=== PATIENT | female | born 1945 | race Caucasian/White ===

== ENCOUNTER → 2017-01-03 | Outpatient (CLI) | payer OTHER ==
[2017-01-03 12:45] LABS: ESTIMATED AVERAGE GLUCOSE 192 mg/dl; HA1C FLAG Normal (Normal)
[2017-01-03 13:57] LABS: ALT/SGPT 25 U/L (12-78); AST/SGOT 14 U/L (15-37); BLOOD UREA NITROGEN 18 mg/dl (7-18); BUN/CREATININE RATIO 14.6 (10-20); CALCIUM 9.8 mg/dl (8.5-10.1); CARBON DIOXIDE 25 mmol/L (21-32); CHLORIDE 100 mmol/L (98-107); GLUCOSE 128 mg/dl (70-99); POTASSIUM 4.6 mmol/L (3.5-5.1); SODIUM 135 mmol/L (136-145)
[2017-01-03 13:59] LABS: ALB/GLOB RATIO 1.1 (0.9-2); ALKALINE PHOSPHATASE 88 U/L (45-117)
[2017-01-03 18:05] LABS: URINE APPEARANCE CLEAR (CLEAR); URINE BILIRUBIN NEG (NEG); URINE COLOR YELLOW; URINE EPITHELIAL CELL AUTO >30 /lpf (0-5); URINE NITRITE NEG (NEG); UROBILINOGEN NEG (NEG); ZZUR CULT IF INDIC CLEAN CATCH YES
[2017-01-03 18:12] LABS: MANUAL MICROSCOPIC REQUIRED? NO; REVIEW REQ? NO
== END | disposition home or self-care (01) ==
LOC: C.LABBFT 08:31
PROVIDERS: ATTEND Internal Medicine
DX: E11.22 Type 2 diabetes mellitus with diabetic chronic kidney disease (principal); N18.3 Chronic kidney disease, stage 3 (moderate); E55.9 Vitamin D deficiency, unspecified

== ENCOUNTER → 2017-01-23 | Outpatient (CLI) | payer OTHER | END | disposition home or self-care (01) | LOC: C.PAPS 16:25 | PROVIDERS: ATTEND Obstetrics & Gynecology | DX: Z12.4 Encounter for screening for malignant neoplasm of cervix (principal); N81.10 Cystocele, unspecified; N81.6 Rectocele ==

== ENCOUNTER → 2017-05-05 | Outpatient (CLI) | payer OTHER ==
[2017-05-05 12:55] LABS: ESTIMATED AVERAGE GLUCOSE 194 mg/dl; HA1C FLAG Normal (Normal)
[2017-05-05 13:06] LABS: ALB/GLOB RATIO 1.1 (0.9-2); ALKALINE PHOSPHATASE 92 U/L (45-117); ALT/SGPT 27 U/L (12-78); AST/SGOT 17 U/L (15-37); BLOOD UREA NITROGEN 13 mg/dl (7-18); BUN/CREATININE RATIO 12.6 (10-20); CARBON DIOXIDE 25 mmol/L (21-32); CHLORIDE 104 mmol/L (98-107); CHOLESTEROL 149 mg/dl (0-200); CHOLESTEROL/HDL RATIO 2.9; GLUCOSE 134 mg/dl (70-99); HDL CHOLESTEROL 52 mg/dl; LDL CHOLESTEROL CALCULATED 73 mg/dl; POTASSIUM 4.6 mmol/L (3.5-5.1); SODIUM 135 mmol/L (136-145); TRIGLYCERIDES 118 mg/dl (0-150); VERY LOW DENSITY LIPOPROT CALC 24 mg/dl
== END | disposition home or self-care (01) ==
LOC: C.LABBFT 09:01
PROVIDERS: ATTEND Internal Medicine
DX: E11.65 Type 2 diabetes mellitus with hyperglycemia (principal); E78.5 Hyperlipidemia, unspecified; N18.3 Chronic kidney disease, stage 3 (moderate)

== ENCOUNTER → 2017-09-25 | Outpatient (CLI) | payer OTHER ==
[2017-09-25 12:16] LABS: BASO % 0.7 %; BASO ABS # 0.07 K/uL (0-0.2); COMPLETE YES; EOS % 1.7 %; HEMATOCRIT 37.8 % (37-47); IG% 0.3 %; LYMPH % 22.6 %; LYMPH ABS # 2.12 K/uL (1.2-3.4); MEAN CELL VOLUME 87.9 fL (80-100); MEAN CORPUSCULAR HEMOGLOBIN 28.6 pg (25-34); MEAN CORPUSCULAR HGB CONC 32.5 g/dl (32-36); MEAN PLATELET VOLUME 9.1 fL (7.4-10.4); MONO % 5.9 %; NEUT % 68.8 %; PLATELET COUNT 533 K/uL (130-400); WHITE BLOOD COUNT 9.38 K/uL (4.8-10.8)
[2017-09-25 12:39] LABS: ESTIMATED AVERAGE GLUCOSE 186 mg/dl; HA1C FLAG Normal (Normal)
[2017-09-25 13:13] LABS: BLOOD UREA NITROGEN 17 mg/dl (7-18); BUN/CREATININE RATIO 15.8 (10-20); CALCIUM 9.8 mg/dl (8.5-10.1); CARBON DIOXIDE 23 mmol/L (21-32); CHLORIDE 103 mmol/L (98-107); CREATININE 1.06 mg/dl (0.60-1.20); GLUCOSE 133 mg/dl (70-99); POTASSIUM 3.9 mmol/L (3.5-5.1); SODIUM 134 mmol/L (136-145)
== END | disposition home or self-care (01) ==
LOC: C.LABBFT 09:10
PROVIDERS: ATTEND Internal Medicine
DX: E11.65 Type 2 diabetes mellitus with hyperglycemia (principal); E55.9 Vitamin D deficiency, unspecified; N18.3 Chronic kidney disease, stage 3 (moderate); E11.22 Type 2 diabetes mellitus with diabetic chronic kidney disease

== ENCOUNTER → 2017-11-10 | Outpatient (CLI) | payer OTHER | END | disposition home or self-care (01) | LOC: C.PAPS 15:04 | PROVIDERS: ATTEND Obstetrics & Gynecology | DX: N81.3 Complete uterovaginal prolapse (principal); Z78.0 Asymptomatic menopausal state ==

== ENCOUNTER → 2018-01-29 | Outpatient (CLI) | payer OTHER ==
[2018-01-29 12:51] LABS: BLOOD UREA NITROGEN 17 mg/dl (7-18); CALCIUM 9.9 mg/dl (8.5-10.1); CARBON DIOXIDE 25 mmol/L (21-32); CREATININE 1.15 mg/dl (0.60-1.20); GLUCOSE 165 mg/dl (70-99); PHOSPHORUS 3.7 mg/dl (2.5-4.9); POTASSIUM 4.9 mmol/L (3.5-5.1); SODIUM 133 mmol/L (136-145)
[2018-01-29 13:01] LABS: HEMOGLOBIN A1C 8.4 % (4.5-5.6)
[2018-01-29 17:44] LABS: CREATININE RANDOM URINE 79.3 mg/dl
== END | disposition home or self-care (01) ==
LOC: C.LABBFT 09:00
PROVIDERS: ATTEND Internal Medicine
DX: E11.65 Type 2 diabetes mellitus with hyperglycemia (principal); N18.3 Chronic kidney disease, stage 3 (moderate)

== ENCOUNTER 2021-07-04 09:40 | Inpatient (IN) ==
[2021-07-04] MEDS ORDERED: dexAMETHasone 6 MG in SYRINGE 0 ML IV ONE (09:55)
[2021-07-04] MEDS ORDERED: OPTIRAY 320 125ml IV ONE (09:59)
[2021-07-04] MEDS ORDERED: DEXAMETHASONE SOD INJ 4 MG/ML VIAL ONE (10:05)
--- NOTE | 2021-07-04 10:17 | XRay Report ---
XR chest 1V portable CLINICAL HISTORY: SEPSIS COMPARISON STUDY: No previous studies for comparison. FINDINGS: No pneumothorax. No pleural effusion. Patchy mixed reticular and airspace opacities are seen bilaterally. Lung volumes are decreased. Cardiomediastinal silhouette appear to be within normal limits however left cardiac border is obscure d by surrounding opacities. Aorta is tortuous and calcified. Pulmonary vasculature is indistinct.. Osseous structures: unremarkable IMPRESSION: 1. Bilateral mixed reticular and airspace opacities, could represent multifocal pneumonia. 2. Atherosclerosis. ACT 112: Negative or not required by law. The above report was generated using voice recognition software. It may contain grammatical, syntax o r spelling errors. Electronically signed by: Danielle Crowley DO 07/04/2021 10:15 AM
[2021-07-04 10:25] LABS: Hemoglobin 12.5 g/dL (12.0-16.0); Mean Corpuscular Hemoglobin 29.1 pg (25-34); Mean Corpuscular Hgb Conc 33.8 g/dL (32-36); Mean Corpuscular Volume 86.2 fL (80-100); Mean Platelet Volume 9.3 fL (7.4-10.4); Platelet Count 317 K/uL (130-400); RDW Coefficient of Variation 13.9 % (11.5-14.5); RDW Standard Deviation 43.6 fL (36.4-46.3); Red Blood Count 4.29 M/uL (4.2-5.4); White Blood Count 9.77 K/uL (4.8-10.8)
[2021-07-04 10:36] LABS: Partial Thromboplastin Ratio 1.1; Partial Thromboplastin Time 29.9 Seconds (21.0-31.0); Prothrombin Time 10.1 Seconds (9.0-12.0)
[2021-07-04 10:48] LABS: Alanine Aminotransferase 26 U/L (12-78); Albumin Globulin Ratio 0.6 (0.9-2); Albumin Level 2.9 gm/dl (3.4-5.0); Alkaline Phosphatase 82 U/L (45-117); BUN Creatinine Ratio 17.9 (10-20); Bilirubin,Total 0.6 mg/dl (0.2-1); Blood Urea Nitrogen 22 mg/dl (7-18); Calcium 8.7 mg/dl (8.5-10.1); Carbon Dioxide 22 mmol/L (21-32); Chloride 96 mmol/L (98-107); Creatinine Clr Calc Pharmacy 31.9 ml/min; Est GFR (African American) 47.7 ml/min; Est GFR (Non-African American) 41.2 ml/min; Globulin 4.5 gm/dl (2.5-4.0); Glucose 203 mg/dl (70-99); Sodium 128 mmol/L (136-145); Total Protein 7.4 gm/dl (6.4-8.2); Troponin I < 0.015 ng/ml (0-0.045)
[2021-07-04 10:51] LABS: Basophils # (auto) 0.02 K/uL (0-0.2); Basophils % (auto) 0.2 %; Immature Granulocytes # (auto) 0.04 K/uL (0.00-0.02); Immature Granulocytes % (auto) 0.4 %; Lymphocytes # (auto) 0.75 K/uL (1.2-3.4); Lymphocytes % (auto) 7.7 %; Monocytes # (auto) 0.44 K/uL (0.11-0.59); Monocytes % (auto) 4.5 %; Neutrophils # (auto) 8.52 K/uL (1.4-6.5); Neutrophils % (auto) 87.2 %
[2021-07-04 11:05] LABS: Base Excess VBG -3.3 mEq/L; HCO3 VBG 21 mmol/L; PCO2 VBG 37 mmHg (38-50); PO2 VBG 27 mmHg; pH VBG 7.38 (7.36-7.41)
[2021-07-04 11:08] LABS: Oxygen Saturation VBG < 60.0 %
[2021-07-04 11:49] LABS: Potassium 3.9 mmol/L (3.5-5.1)
--- NOTE | 2021-07-04 11:49 | CT Scan Report ---
CT ANGIOGRAM OF THE CHEST CLINICAL HISTORY: ro PE COMPARISON STUDY: No previous studies for comparison. TECHNIQUE: Following the IV administration of 112 mL of Optiray, CT angiogram of the thorax was perfo rmed from the thoracic inlet to the lung bases utilizing the pulmonary embolus protocol. Images are r eviewed in the axial, sagittal, and coronal planes. IV contrast was administered without complication . MIP imaging was performed. A dose lowering technique was utilized adhering to the principles of [place]. CT DOSE: 295.74 mGy.cm FINDINGS: There is adequate opacification within main pulmonary artery. No evidence of acute pulmonary embolus is seen within main and lobar branches of the pulmonary artery . Questionable linear area of decreased attenuation/filling defect is seen within right middle lobe b ranch of the pulmonary artery which could be artifactual due to motion artifact or represent nonocclu sive web (which could be sequela from prior PE () Main pulmonary artery is normal in caliber. There is no right heart strain seen. Heart is normal in size without pericardial effusion. Mild coronary calcifications are seen. Calcific ations of the mitral annulus are demonstrated. There is no axillary, supra clavicle or internal mammary lymphadenopathy seen. Multiple mediastinal l ymph nodes are prominent measuring up to 1.1 cm in short axis in the pretracheal region. Visualized portion of thyroid gland shows 1.7 cm hypoattenuating nodule within right thyroid lobe. Distal aspect of esophagus is patulous with questionable thickening of its wall. Mild hiatal hernia i s seen. There was no evidence of thoracic aortic dilatation. Tracheobronchial tree is patent. This study is acquired during partial expiratory phase. Patchy mixed groundglass and infiltrative opacities are seen bilaterally. No evidence of pleural effusion. Limited evaluation of upper abdominal viscera shows 2.9 cm hypoattenuating lesion within the right lo be of the liver parenchyma (01/14) Osseous structures: Degenerative changes of the spine. IMPRESSION: 1. No definite acute pulmonary embolus is seen. Questionable linear density within right middle lobe pulmonary artery which might be artifactual or represent a web (could be sequela from prior PE). No secondary signs of pulmonary embolus. 2. Patchy airspace opacities throughout bilateral lungs could represent multifocal pneumonia/Covid. Mild mediastinal lymphadenopathy. Short-term follow-up in 4-[address] of the chest is recommend ed to document resolution. 3. Questionable hypoattenuating lesion within the right lobe of the liver is incompletely evaluated on this nondedicated exam. Differential diagnosis include hemangioma, cyst or neoplastic process. Ple ase correlate above-mentioned findings with prior history of malignancy. 4. Right thyroid nodule. 5. Hiatal hernia. 6. The rest of findings as above. ACT 112: Negative or not required by law. The above report was generated using voice recognition software. It may contain grammatical, syntax o r spelling errors. Electronically signed by: Danielle Crowley DO 07/04/2021 11:48 AM
--- NOTE | 2021-07-04 12:20 | History & Physical Report ---
Date of Service July 04, 2021 Assessment & Plan (1) Pneumonia due to COVID-19 virus: Plan: Unvaccinated Dexamethasone total 10mg now then 6mg IV daily for total of 9 days of until discharge. Reassess with CRP in 48 hours Defer tocilizumab due to low O2 requirement at the current time Above discussed with pulmonology, Dr Cheo Taylorivir deferred due to low eGFR and at day 10 of illness Cover for atypical pneumonia given elevated neutrophil count with azithromycin Procalcitonin negative therefore will hold of typical coverage unless procalcitonin increases or patient deteriorates. (2) Acute respiratory failure with hypoxia: Plan: Secondary to COVID-19 pneumonia as above Questionable pulmonary emboli and possible bacterial secondary infection much less likely contributing. Aim O2 sats >= 94% (3) Pulmonary emboli: Plan: Questionable diagnosis. Consider treatment for 3 months however with d-dimer 1870. Start Lovenox 1mg/kg Q12H during inpatient stay (4) Hyponatremia: Plan: Acute on chronic, clinically dry, sodium correction for hyperglycemia = 130 ?nutritional Serum osm, urine osm/Na pending to further investigate Will defer IV fluids to avoid worsening respiratory status and monitor sodium as glucose improves (5) Hypertension: Plan: Antihypertensives not taken by patient for last two days and blood pressure stable Continue to hold lisinopril in setting of worsening renal function Switch diltiazem ER to IR 60mg TID with hold parameters to allow better control (6) Diabetes mellitus type 2, uncontrolled: Plan: HbA1C 10 in April. Repeat with AM labs. Hold home meds of glimepiride and metformin Consult pharmacy for glycemic control with basal bolus insulin in setting of steroid use. (7) Liver lesion: Plan: Incidental finding. AFP with AM labs. Follow up for dedicated imaging as outpatient. (8) Right thyroid nodule: Plan: Incidental finding. Follow up US thyroid, TSH as outpatient. (9) Chronic kidney disease, stage 3: Plan: Close to baseline. No IV fluids at current time as reportedly drinking well and need to avoid worsening respiratory status. Monitor BMP daily. Plan: VTE Prophylaxis - Lovenox treatment dose as above Diet - T2DM Disposition - admit to med/tele Admission and Anticipated Discharge Date Admission Date: July 04, 2021 History of Present Illness Chief Complaint: COVID symptoms, hypoxia Primary Care Provider: MD Juliana Mcdowell is a 76 year old female who presents to the ER COVID symptoms and hypoxia on home oxygen saturation monitor. Patient is unvaccinated. Initial symptoms started 10 days ago including fevers, chills, loss of taste, loss of appetite, myalgias, diarrhea (now resolved), generalized fatigue, shortness of breath, nonproductive cough. She denies any sore throat, headache, confusion, chest or abdominal pain. She reports coming to the ER today due to her oxygen saturations 85% on room air and was advised to come to the ER if less than 90%. She does report feeling more short of breath today but her main symptoms are generalized weakness, fatigue and loss of appetite. She reports drinking okay but not eating. She lives with her son who is vaccinated. She has not taken her medications for the last 2 days that she has forgotten to take them. She does report taking for amoxicillin which she had leftover at the beginning of this illness but no further antibiotics. In the ER CT chest angiogram concerning for questionable pulmonary embolus, multifocal pneumonia. O2 sats maintaining > 94% on 2 LPM O2. Tried calling patient's daughter but no answer on number provided on admission. Allergies Allergy/AdvReac Type Severity Reaction Status Date / Time doxycycline AdvReac Unknown diarrhea Verified 07/04/21 12:07 Home Medications Medication Instructions Recorded Confirmed Type meclizine 25 mg tablet 25 mg PO QID PRN #60 tab 04/06/20 07/04/21 Rx glucosamine sulfate 1,000 mg 1,000 mg PO TID 05/19/20 07/04/21 History capsule ibuprofen-diphenhydramine citrate 1 cap PO HS 05/19/20 07/04/21 History 200 mg-38 mg tablet (Advil PM) estradiol 1 g PV 4XWK #42.5 g 08/26/20 07/04/21 Rx metformin 500 mg tablet 500 mg PO BID tab 11/05/20 07/04/21 History diltiazem HCl 360 mg capsule,24 360 mg PO QAM #90 cap 12/30/20 07/04/21 Rx hr,extended release glimepiride 4 mg tablet 4 mg PO BID #180 tab 12/30/20 07/04/21 Rx lisinopril 20 mg tablet 20 mg PO BID #180 tab 12/30/20 07/04/21 Rx buspirone 7.5 mg tablet 7.5 mg PO DAILY 07/04/21 07/04/21 History Past Med/Surg History Medical History (Updated 07/04/21 @ 13:52 by Masood Quick MD) Anxiety Chronic kidney disease doesn't follow with anyone Diabetes mellitus NIDDM GERD (gastroesophageal reflux disease) NO MEDS Hypercalcemia Hyperlipidemia Hypertension Murmur dx within last 5 yrs ago> heard occasionlly Osteoarthritis Osteopenia Surgical History History of cataract surgery right History of esophagogastroduodenoscopy (EGD) History of tooth extraction Rectocele Family History Mother Myocardial infarction Sister Hypertension Denies family history of Ovarian cancer Prostate cancer Coronary heart disease Breast cancer Colorectal cancer Social History Smoking Status: Never smoker Second Hand Exposure: No; Do You Dip or Chew Tobacco: No; Tobacco Cessation Education Requested by Patient: No Hx Alcohol Use: No Hx Substance Use: No Preferred Language: Macedonian Communication Ability: Effective Visual Impairment: No Limitations Hearing Ability: Normal Manager Lighting Required: No Beliefs That Will Affect Care: None marital status: / Current Living Situation: Family Current Living Situation Comment: muti story home current occupational status: retired Other Information That Helps Us Care for You: No Feels Safe at Home: Yes Safety Concerns: Feels Safe At This Time Childhood Exposure to Second-Hand Smoke: Yes caffeine: No Dental Care, Regularly: Yes Physical Activity Frequency: Does not Exercise Seatbelt Use: always Sunscreen Use: No Assistive Devices: None Review of Systems Review of Systems: All systems reviewed & are unremarkable except as noted in HPI & below Constitutional: + fatigue and + weakness Respiratory: + dyspnea Physical Exam Constitutional: well developed and well nourished; no acute distress Eyes: + anicteric sclerae; normal pupil size ENMT: Mouth: + dry oral mucous membranes Neck: trachea midline, no thyromegaly Respiratory: + retractions, + uses accessory muscles, able to speak in complete sentences and + tachypneic; no cough and expiratory phase not prolonged Auscultation: + crackles (fine throughout); no diminished lung sounds, no rhonchi and no wheezes Cardiovascular: Rate/Rhythm: regular rhythm and + tachycardic Heart Sounds: no murmur Vessels: posterior tibial pulses present, dorsalis pedis pulses present and radial pulses present Extremities: normal capillary refill; no calf tenderness and no pedal edema Gastrointestinal (Abdomen): normal bowel sounds, soft, nontender, no hepatosplenomegaly Musculoskeletal: no cyanosis or clubbing, extremities motor strength 5/5 Skin: no rashes, warm and dry Neurologic: moves all extremities and awake; no focal motor deficits (no lateralizing weakness) and not confused Psychiatric: A+Ox3, euthymic affect Results & Data Results & Data ([facility]) Vital Signs (Past 12 Hours) Vital Signs Temp Pulse Resp BP Pulse Ox 07/04/21 12:00 94 H 29 H 116/71 95 07/04/21 11:30 87 39 H 135/60 95 07/04/21 11:00 91 H 37 H 116/82 97 07/04/21 10:30 90 30 H 125/70 98 07/04/21 09:53 98 07/04/21 09:47 36.4 C L 99 H 18 130/61 84 L Laboratory Results Abnormal lab results 07/04/21 07/04/21 07/04/21 Range/Units 10:11 10:11 10:11 Neut # (Auto) 8.52 H (1.4-6.5) K/uL Lymph # (Auto) 0.75 L (1.2-3.4) K/uL Immature Gran # (Auto) 0.04 H (0.00-0.02) K/uL D-Dimer 1870 H* (0-500) ug/L FEU VBG pCO2 (38-50) mmHg Sodium 128 L (136-145) mmol/L Chloride 96 L (98-107) mmol/L BUN 22 H (7-18) mg/dl Creatinine 1.25 H (0.6-1.2) mg/dl Glucose 203 H (70-99) mg/dl Osmolality (280-300) mOsm/kg AST (15-37) U/L C-Reactive Protein (0-0.29) mg/dl Albumin 2.9 L (3.4-5.0) gm/dl Globulin 4.5 H (2.5-4.0) gm/dl Albumin/Globulin Ratio 0.6 L (0.9-2) SARS-CoV-2 (PCR) (Negative) 07/04/21 07/04/21 07/04/21 Range/Units 10:45 11:04 11:26 Neut # (Auto) (1.4-6.5) K/uL Lymph # (Auto) (1.2-3.4) K/uL Immature Gran # (Auto) (0.00-0.02) K/uL D-Dimer (0-500) ug/L FEU VBG pCO2 37 L (38-50) mmHg Sodium (136-145) mmol/L Chloride (98-107) mmol/L BUN (7-18) mg/dl Creatinine (0.6-1.2) mg/dl Glucose (70-99) mg/dl Osmolality 279 L (280-300) mOsm/kg AST 38 H (15-37) U/L C-Reactive Protein (0-0.29) mg/dl Albumin (3.4-5.0) gm/dl Globulin (2.5-4.0) gm/dl Albumin/Globulin Ratio (0.9-2) SARS-CoV-2 (PCR) (Negative) 07/04/21 07/04/21 Range/Units 11:26 12:10 Neut # (Auto) (1.4-6.5) K/uL Lymph # (Auto) (1.2-3.4) K/uL Immature Gran # (Auto) (0.00-0.02) K/uL D-Dimer (0-500) ug/L FEU VBG pCO2 (38-50) mmHg Sodium (136-145) mmol/L Chloride (98-107) mmol/L BUN (7-18) mg/dl Creatinine (0.6-1.2) mg/dl Glucose (70-99) mg/dl Osmolality (280-300) mOsm/kg AST (15-37) U/L C-Reactive Protein 15.00 H (0-0.29) mg/dl Albumin (3.4-5.0) gm/dl Globulin (2.5-4.0) gm/dl Albumin/Globulin Ratio (0.9-2) SARS-CoV-2 (PCR) POSITIVE A* (Negative) Diagnostic Findings XR chest 1V portable CLINICAL HISTORY: SEPSIS COMPARISON STUDY: No previous studies for comparison. FINDINGS: No pneumothorax. No pleural effusion. Patchy mixed reticular and airspace opacities are seen bilaterally. Lung volumes are decreased. Cardiomediastinal silhouette appear to be within normal limits however left cardiac border is obscured by surrounding opacities. Aorta is tortuous and calcified. Pulmonary vasculature is indistinct.. Osseous structures: unremarkable IMPRESSION: 1. Bilateral mixed reticular and airspace opacities, could represent multifocal pneumonia. 2. Atherosclerosis. CT ANGIOGRAM OF THE CHEST CLINICAL HISTORY: ro PE COMPARISON STUDY: No previous studies for comparison. TECHNIQUE: Following the IV administration of 112 mL of Optiray, CT angiogram of the thorax was performed from the thoracic inlet to the lung bases utilizing the pulmonary embolus protocol. Images are reviewed in the axial, sagittal, and coronal planes. IV contrast was administered without complication. MIP imaging was performed. A dose lowering technique was utilized adhering to the principles of ALARA. CT DOSE: 295.74 mGy.cm FINDINGS: There is adequate opacification within main pulmonary artery. No evidence of acute pulmonary embolus is seen within main and lobar branches of the pulmonary artery. Questionable linear area of decreased attenuation/filling defect is seen within right middle lobe branch of the pulmonary artery which could be artifactual due to motion artifact or represent nonocclusive web (which could be sequela from prior PE () Main pulmonary artery is normal in caliber. There is no right heart strain seen. Heart is normal in size without pericardial effusion. Mild coronary calcifications are seen. Calcifications of the mitral annulus are demonstrated. There is no axillary, supra clavicle or internal mammary lymphadenopathy seen. Multiple mediastinal lymph nodes are prominent measuring up to 1.1 cm in short axis in the pretracheal region. Visualized portion of thyroid gland shows 1.7 cm hypoattenuating nodule within right thyroid lobe. Distal aspect of esophagus is patulous with questionable thickening of its wall. Mild hiatal hernia is seen. There was no evidence of thoracic aortic dilatation. Tracheobronchial tree is patent. This study is acquired during partial expiratory phase. Patchy mixed groundglass and infiltrative opacities are seen bilaterally. No evidence of pleural effusion. Limited evaluation of upper abdominal viscera shows 2.9 cm hypoattenuating lesion within the right lobe of the liver parenchyma (4/1) Osseous structures: Degenerative changes of the spine. IMPRESSION: 1. No definite acute pulmonary embolus is seen. Questionable linear density within right middle lobe pulmonary artery which might be artifactual or represent a web (could be sequela from prior PE). No secondary signs of pulmonary embolus. 2. Patchy airspace opacities throughout bilateral lungs could represent multifocal pneumonia/Covid. Mild mediastinal lymphadenopathy. Short-term follow- up in 4-[address] of the chest is recommended to document resolution. 3. Questionable hypoattenuating lesion within the right lobe of the liver is incompletely evaluated on this nondedicated exam. Differential diagnosis include hemangioma, cyst or neoplastic process. Please correlate above-mentioned findings with prior history of malignancy. 4. Right thyroid nodule. 5. Hiatal hernia. 6. The rest of findings as above. Medications Administered ER Medications Given: Dexamethasone 6mg IV ECG Indication: SOB/dyspnea Rate (beats per minute): 96 Rhythm: sinus tachycardia Findings: + left axis deviation Comparison ECG Date: no prior available Code Status & VTE Plan Code Status Full VTE Prophylaxis Plan VTE Prophylaxis will be ordered: Yes PG Care Time/CCT Total # of Minutes Spent Total Time Spent with Patient: Total time spent is greater than 50% in coordination of care (as documented) at patient's floor/unit and/or counseling patient: Coding Level of Care Code 46239 Initial Inpt Care Lvl 3 Diagnoses Right thyroid nodule E04.1 Hypertension I10 Diabetes mellitus type 2, uncontrolled E11.65 Glycemic state: with hyperglycemia Hyponatremia E87.1 Liver lesion K76.9 Pneumonia due to COVID-19 virus U07.1; J12.82 Chronic kidney disease, stage 3 N18.3 Acute respiratory failure with hypoxia J96.01 Pulmonary emboli I26.99 (1) Diabetes mellitus type 2, uncontrolled Glycemic state: with hyperglycemia Qualified Code(s): E11.65 - Type 2 diabetes mellitus with hyperglycemia
[2021-07-04] MEDS ORDERED: AZITHROMYCIN 500 MG in DEXTROSE 5% 250 ML IV STA (12:42)
[2021-07-04] MEDS ORDERED: ENOXAPARIN 1 MG/KG SQ STA ×2 (13:02→13:44)
[2021-07-04 13:07] LABS: D Dimer 1870 ug/L FEU (0-500)
[2021-07-04] MEDS ORDERED: dexAMETHasone 4 MG in SYRINGE 0 ML IV ONE (13:15)
[2021-07-04] MEDS ORDERED: ENOXAPARIN 80 MG/0.8 ML SYR SQ SCH (14:15)
[2021-07-04] MEDS ORDERED: PHARMACY GLYCEMIC MGMT CONSULT PRN (14:16)
[2021-07-04] MEDS ORDERED: ONDANSETRON INJ 2 MG/ML 2 ML VIAL IV PRN (14:16)
[2021-07-04] MEDS ORDERED: POLYETHYLENE (MIRALAX) 17 GM PACK PO PRN (14:16)
[2021-07-04] MEDS ORDERED: ACETAMINOPHEN 325 MG TAB PO PRN (14:16)
[2021-07-04] MEDS ORDERED: ALUMINUM/MAGNESIUM SUSP 30 ML UDC PO PRN (14:16)
[2021-07-04] MEDS ORDERED: INSULIN HUMAN NPH SC ONE (14:45)
[2021-07-04] MEDS ORDERED: busPIRone 7.5 MG TAB PO PRN (14:48)
--- NOTE | 2021-07-04 14:53 | Pharmacy Report ---
Pharmacy Glycemic Short Note 2 - Date of Service July 04, 2021 - Glycemic Short BSG Results (Last 24 hours): 07/04/21 10:11 Glucose 203 H OUTPATIENT ANTIDIABETIC REGIMEN: * Glimepiride * Metformin * A1c = 10% on 04/22/21; repeat A1c pending for AM labs 07/05/21 ASSESSMENT: * 76yo T2DM female with poor outpatient control per recent A1c. Pt follows with [facility]- at last visit plan was for patient to work on her diet (limiting CHO) to improve glycemic control which she has been successful with in the past. Will recheck A1c to see progress of this plan * Pt admitted with COVID-19. Starting high dose IV steroids with dexamethasone 10mg IV x 1 dose today and then 6mg IV daily x 9 days * Will start SQ basal bolus insulin regimen with Lantus + NovoLog for baseline BSG control while PO antidiabetic agents on hold for admission. * Will start weight based NPH for steroid induced hyperglycemia. * NPH insulin is used to counteract the hyperglycemic effect of once daily steroids. * The dose of NPH given is dependent on the steroid dose given * For doses of prednisone 40mg/day (or equivalent) or above NPH dose should be 0.4 units/kg * NPH dosing above is given in addition to patients basal insulin needs * Typically, patients will also need rapid-acting insulin with meals PLAN FOR INPATIENT GLYCEMIC CONTROL: * Hold outpatient oral diabetes medications * Basal insulin * Lantus 20 units (0.3 units/kg) SQ HS - will consider adding a BID dosing tomorrow based on BSGs * Steroid induced hyperglycemia * NPH 25 units (0.4 units/kg) Sq daily with IV dexamethasone * Bolus insulin * NovoLog per scale ACHS or Q6hrs while NPO * Goal Range: Low 100 mg/dL - High 140 mg/dL * Correction Factor: 25 mg/dL/unit * Nutritional / Prandial insulin per carb ratio of 1 unit per 8 grams CHO consumed PLAN FOR DISCHARGE: * TBD based on A1c 07/05 and steroid taper plan post dc
[2021-07-04] MEDS: dilTIAZem HCL 30 MG TAB PO SCH ×2 (16:11→20:54)
[2021-07-04 16:39] LABS: Appearance Urine Cloudy (Clear); Bacteria Urine Automated 4+ (Negative); Bilirubin Urine Negative (Negative); Blood Urine Trace (Negative); Color Urine Yellow; Epithelial Cell Urine Auto >30 /lpf (0-5); Glucose Urine UA 3+ (Negative); Ketones Urine 1+ (Negative); Leukocyte Esterase Urine 1+ (Negative); Nitrite Urine Negative (Negative); Protein Urine 2+ (Negative); RBC Urine Automated 0-4 /hpf (0-4); Specific Gravity Urine > 1.045 (1.000-1.030); Urobilinogen Urine Negative (Negative); WBC Urine Automated >30 /hpf (0-5); pH Urine 5.5 (4.5-7.5)
--- NOTE | 2021-07-04 16:46 | Emergency Department Note ---
History of Present Illness General Chief Complaint: Respiratory Problems Stated Complaint: COVID POSITIVE OXYGEN LEVELS ARE DROPPING Time Seen by Provider: 07/04/21 09:52 History of Present Illness Provider Complaint: shortness of breath and cough Onset (ago): day(s) (10) Severity: severe Consistency/Duration: + progressively worsening Relieved By: + nothing Exacerbated By: + exertion and + coughing Context: + recent illness (Tested positive for COVID-19 10 days ago, unvaccinated) Associated symptoms: + fever, + cough, + wheezing, + sputum production and + nausea/vomiting; no orthopnea, no polyuria, no palpitations, no hemoptysis, no diaphoresis, no abdominal pain, no rash, no dizziness or no lightheadedness Home Medications Medication Instructions Recorded Confirmed Type meclizine 25 mg tablet 25 mg PO QID PRN #60 tab 04/06/20 07/04/21 Rx glucosamine sulfate 1,000 mg 1,000 mg PO TID 05/19/20 07/04/21 History capsule ibuprofen-diphenhydramine citrate 1 cap PO HS 05/19/20 07/04/21 History 200 mg-38 mg tablet (Advil PM) estradiol 1 g PV 4XWK #42.5 g 08/26/20 07/04/21 Rx metformin 500 mg tablet 500 mg PO BID tab 11/05/20 07/04/21 History diltiazem HCl 360 mg capsule,24 360 mg PO QAM #90 cap 12/30/20 07/04/21 Rx hr,extended release glimepiride 4 mg tablet 4 mg PO BID #180 tab 12/30/20 07/04/21 Rx lisinopril 20 mg tablet 20 mg PO BID #180 tab 12/30/20 07/04/21 Rx buspirone 7.5 mg tablet 7.5 - 15 mg PO TID 07/04/21 07/04/21 History Allergies Allergy/AdvReac Type Severity Reaction Status Date / Time doxycycline AdvReac Unknown diarrhea Verified 07/04/21 12:07 Past Med/Surg History Medical History (Updated 07/04/21 @ 16:47 by Cliff Packer) Anxiety Chronic kidney disease doesn't follow with anyone COVID Diabetes mellitus NIDDM GERD (gastroesophageal reflux disease) NO MEDS Hypercalcemia Hyperlipidemia Hypertension Murmur dx within last 5 yrs ago> heard occasionlly Osteoarthritis Osteopenia Surgical History History of cataract surgery right History of esophagogastroduodenoscopy (EGD) History of tooth extraction Rectocele Family History Mother Myocardial infarction Sister Hypertension Denies family history of Ovarian cancer Prostate cancer Coronary heart disease Breast cancer Colorectal cancer Social History Smoking Status: Never smoker Second Hand Exposure: No; Do You Dip or Chew Tobacco: No; Tobacco Cessation Education Requested by Patient: No Hx Alcohol Use: No Hx Substance Use: No Preferred Language: Greek Communication Ability: Effective Visual Impairment: No Limitations Hearing Ability: Normal Workflow Developer Required: No Beliefs That Will Affect Care: None marital status: / Current Living Situation: Family Current Living Situation Comment: [facility] current occupational status: retired Other Information That Helps Us Care for You: No Feels Safe at Home: Yes Safety Concerns: Feels Safe At This Time Childhood Exposure to Second-Hand Smoke: Yes caffeine: No Dental Care, Regularly: Yes Physical Activity Frequency: Does not Exercise Seatbelt Use: always Sunscreen Use: No Assistive Devices: None Review of Systems A total of 10 systems reviewed and were otherwise negative Physical Exam Vital Signs: Vital Signs - 24 hr 07/04/21 09:47 07/04/21 09:53 07/04/21 10:30 Temperature 36.4 C L Temperature Source Temporal Artery Sc an Pulse Rate 99 H 90 Pulse Rate from Sp O2 Sensor Respiratory Rate 18 30 H Respiratory Effort / Characteristics Non-Labored Spontaneous Short of Breath SOB on E xertion Respiratory Depth Normal Normal Respiratory Patter n Regular Regular Blood Pressure 130/61 125/70 Blood Pressure Zehra n 84 88 Blood Pressure Pos ition Sitting Pulse Oximetry 84 L 98 98 Oxygen Delivery Me thod Room Air Nasal Cannula Nasal Cannula Oxygen Flow Rate 3 2 Sepsis Recent Feve r Within 48 Hours Yes Sepsis New/Unexpla ined Change in Men inna Status No Sepsis Action Take n by Nursing No Action Required Oxygen Flow Rate - Titration 3 Pulse Oximetry Pos t Tiitration 98 07/04/21 11:00 07/04/21 11:30 07/04/21 12:00 Temperature Temperature Source Pulse Rate 91 H 87 94 H Pulse Rate from Sp O2 Sensor 91 H 88 95 H Respiratory Rate 37 H 39 H 29 H Respiratory Effort / Characteristics Respiratory Depth Respiratory Patter n Blood Pressure 116/82 135/60 116/71 Blood Pressure Zehra n 93 85 86 Blood Pressure Pos ition Pulse Oximetry 97 95 95 Oxygen Delivery Me thod Nasal Cannula Oxygen Flow Rate 2 Sepsis Recent Feve r Within 48 Hours Sepsis New/Unexpla ined Change in Men inna Status Sepsis Action Take n by Nursing Oxygen Flow Rate - Titration Pulse Oximetry Pos t Tiitration 07/04/21 12:30 07/04/21 13:00 Temperature Temperature Source Pulse Rate 99 H 87 Pulse Rate from Sp O2 Sensor 95 H 87 Respiratory Rate 40 H 39 H Respiratory Effort / Characteristics Respiratory Depth Respiratory Patter n Blood Pressure 141/65 H 129/63 Blood Pressure Zehra n 90 85 Blood Pressure Pos ition Pulse Oximetry 95 96 Oxygen Delivery Me thod Oxygen Flow Rate Sepsis Recent Feve r Within 48 Hours Sepsis New/Unexpla ined Change in Men inna Status Sepsis Action Take n by Nursing Oxygen Flow Rate - Titration Pulse Oximetry Pos t Tiitration Physical Exam: Physical Exam GENERAL: He is oriented to person, place, and time. He appears well-developed and well-nourished. He does not appear distressed. HENT: Exam performed. - Head: Normocephalic and atraumatic. - Right Ear: External ear normal. No mastoid tenderness. - Left Ear: External ear normal. No mastoid tenderness. - Mouth/Throat: The oropharynx is clear and moist. No trismus in the jaw. No dental abscesses or uvula swelling. No oropharyngeal exudate or tonsillar abscesses. EYES: Conjunctivae and EOM are normal. Pupils are equal, round, and reactive to light. Right eye exhibits no discharge. Left eye exhibits no discharge. No scleral icterus. NECK: Normal range of motion. Neck supple. No JVD present. No spinous process tenderness present. No carotid bruit present. No rigidity. No tracheal deviation and normal range of motion present. No Brudzinski's sign and no Kernig's sign noted. CV: Normal rate, regular rhythm, normal heart sounds and intact distal pulses. There is no peripheral edema. Palpable radial pulses bue. PULM/CHEST: Rhonchi bilaterally ABD: The abdomen is soft. Bowel sounds are normal. He has no distension. No mass is present. There is no tenderness. There is no rebound, no guarding, no Mcknight's sign and no tenderness at McBurney's point. Rovsig negative. MUSC/SKEL: Normal range of motion. There is no peripheral edema, tenderness or deformity. LYMPH: No cervical adenopathy. NEURO: He is alert and oriented to person, place, and time. He has normal strength. No cranial nerve deficit or sensory deficit. Coordination and gait normal. GCS eye subscore is 4. GCS verbal subscore is 5. GCS motor subscore is 6. Cerebellar tests wnl. SKIN: Skin is warm and dry. He is not diaphoretic. PSYCH: He has a normal mood and affect. Behavior is normal. Judgment and thought content normal. Course Course 951: The patient was evaluated in room C2. A complete history and physical exam was performed Cardiac monitoring: An order was placed for continuous cardiac monitoring. The monitor shows a rate of 90 with sinus rhythm Patient found to be hypoxic on room air. Supplemental oxygen was applied via nasal cannula which improved his oxygen saturation. Decadron 6 mg IV push ordered for the patient given his hypoxia and recent COVID-19 diagnosis. 1205: Vital signs stable on supplemental oxygen via nasal cannula. Imaging shows no PE but does show bilateral groundglass opacities. Labs are within normal limits with exception of sodium 128. Patient will be [facility] to [facility] Dr. Quick notified. Administered Medications Diltiazem HCl (Diltiazem Hcl 30 Mg Tab) 30 mg PO TID [facility] Stop: 08/03/21 14:15 Last Admin: 07/04/21 16:11 Dose: 30 mg Documented by: [id number] Enoxaparin Sodium (Enoxaparin 80 Mg/0.8 Ml Syr) 70 mg SQ 1415 CLAUDETTE Stop: 07/04/21 18:00 Last Admin: 07/04/21 16:11 Dose: 70 mg Documented by: [id number] Discontinued Medications Dexamethasone (Dexamethasone Sod Inj 4 Mg/Ml Vial) Confirm Administered Dose 8 mg .ROUTE .STK-MED ONE Stop: 07/04/21 10:06 Last Admin: 07/04/21 10:14 Dose: Not Given Documented by: [id number] Enoxaparin Sodium (Enoxaparin 1 Mg/Kg) 1 mg SQ ONE [facility] Stop: 07/04/21 13:03 Last Admin: 07/04/21 15:58 Dose: Not Given Documented by: [id number] Dexamethasone 6 mg/ Syringe 1.5 mls @ 1 mls/min IV ONE ONE Stop: 07/04/21 09:56 Last Admin: 07/04/21 10:14 Dose: 1 mls/min Documented by: [id number] Azithromycin 500 mg/ Dextrose 255 mls @ 127.5 mls/hr IV NOW STA Stop: 07/04/21 14:41 Last Infusion: 07/04/21 15:58 Dose: 0 mls/hr Documented by: [id number] Admin: 07/04/21 13:11 Dose: 127.5 mls/hr Documented by: [id number] Dexamethasone 4 mg/ Syringe 1 mls @ 1 mls/min IV 1315 ONE Stop: 07/04/21 13:16 Last Admin: 07/04/21 13:55 Dose: 1 mls/min Documented by: [id number] Insulin Human NPH (Insulin Human Nph) 25 units SC NOW ONE Stop: 07/04/21 14:46 Last Admin: 07/04/21 15:52 Dose: 25 units Documented by: [id number] Cosigned by: [id number] Ioversol (Optiray 320 125ml) 120 ml IV ONCE ONE Stop: 07/04/21 10:00 Last Admin: 07/04/21 09:59 Dose: 120 ml Documented by: [id number] Medical Decision Making Laboratory Data Result diagrams: 07/04/21 10:11 07/04/21 11:26 Lab Results 07/04/21 07/04/21 07/04/21 Range/Units 10:11 10:11 10:11 WBC 9.77 (4.8-10.8) K/uL RBC 4.29 (4.2-5.4) M/uL Hgb 12.5 (12.0-16.0) g/dL Hct 37.0 (37-47) % MCV 86.2 (80-100) fL MCH 29.1 (25-34) pg MCHC 33.8 (32-36) g/dL RDW Std Deviation 43.6 (36.4-46.3) fL RDW Coeff of Anika 13.9 (11.5-14.5) % Plt Count 317 (130-400) K/uL MPV 9.3 (7.4-10.4) fL Immature Gran % (Auto) 0.4 % Neut % (Auto) 87.2 % Lymph % (Auto) 7.7 % Wood % (Auto) 4.5 % Eos % (Auto) 0.0 % Baso % (Auto) 0.2 % Neut # (Auto) 8.52 H (1.4-6.5) K/uL Lymph # (Auto) 0.75 L (1.2-3.4) K/uL Wood # (Auto) 0.44 (0.11-0.59) K/uL Eos # (Auto) 0.00 (0-0.5) K/uL Baso # (Auto) 0.02 (0-0.2) K/uL Immature Gran # (Auto) 0.04 H (0.00-0.02) K/uL PT (9.0-12.0) Seconds INR (0.9-1.1) APTT (21.0-31.0) Seconds PTT Ratio D-Dimer (0-500) ug/L FEU VBG pH (7.36-7.41) VBG pCO2 (38-50) mmHg VBG pO2 mmHg VBG HCO3 mmol/L VBG O2 Saturation % VBG Base Excess mEq/L Barometric Pressure mm/Hg Sodium 128 L (136-145) mmol/L Potassium (3.5-5.1) mmol/L Chloride 96 L (98-107) mmol/L Carbon Dioxide 22 (21-32) mmol/L Anion Gap 11.0 (3-11) BUN 22 H (7-18) mg/dl Creatinine 1.25 H (0.6-1.2) mg/dl Est Cr Clr Drug Dosing 31.9 ml/min Est GFR ( Amer) 47.7 ml/min Est GFR (Non-Af Amer) 41.2 ml/min BUN/Creatinine Ratio 17.9 (10-20) Glucose 203 H (70-99) mg/dl Osmolality (280-300) mOsm/kg Lactate (0.4-2.0) mmol/L Calcium 8.7 (8.5-10.1) mg/dl Magnesium (1.8-2.4) mg/dl Total Bilirubin 0.6 (0.2-1) mg/dl AST (15-37) U/L ALT 26 (12-78) U/L Alkaline Phosphatase 82 (45-117) U/L Troponin I < 0.015 (0-0.045) ng/ml C-Reactive Protein (0-0.29) mg/dl Total Protein 7.4 (6.4-8.2) gm/dl Albumin 2.9 L (3.4-5.0) gm/dl Globulin 4.5 H (2.5-4.0) gm/dl Albumin/Globulin Ratio 0.6 L (0.9-2) Procalcitonin Cancelled COVID-19 Eval Order SARS-CoV-2 (PCR) (Negative) 07/04/21 07/04/21 07/04/21 Range/Units 10:11 10:11 10:45 WBC (4.8-10.8) K/uL RBC (4.2-5.4) M/uL Hgb (12.0-16.0) g/dL Hct (37-47) % MCV (80-100) fL MCH (25-34) pg MCHC (32-36) g/dL RDW Std Deviation (36.4-46.3) fL RDW Coeff of Anika (11.5-14.5) % Plt Count (130-400) K/uL MPV (7.4-10.4) fL Immature Gran % (Auto) % Neut % (Auto) % Lymph % (Auto) % Wood % (Auto) % Eos % (Auto) % Baso % (Auto) % Neut # (Auto) (1.4-6.5) K/uL Lymph # (Auto) (1.2-3.4) K/uL Wood # (Auto) (0.11-0.59) K/uL Eos # (Auto) (0-0.5) K/uL Baso # (Auto) (0-0.2) K/uL Immature Gran # (Auto) (0.00-0.02) K/uL PT 10.1 (9.0-12.0) Seconds INR 1.0 (0.9-1.1) APTT 29.9 (21.0-31.0) Seconds PTT Ratio 1.1 D-Dimer 1870 H* (0-500) ug/L FEU VBG pH 7.38 (7.36-7.41) VBG pCO2 37 L (38-50) mmHg VBG pO2 27 mmHg VBG HCO3 21 mmol/L VBG O2 Saturation < 60.0 % VBG Base Excess -3.3 mEq/L Barometric Pressure 738.1 mm/Hg Sodium (136-145) mmol/L Potassium (3.5-5.1) mmol/L Chloride (98-107) mmol/L Carbon Dioxide (21-32) mmol/L Anion Gap (3-11) BUN (7-18) mg/dl Creatinine (0.6-1.2) mg/dl Est Cr Clr Drug Dosing ml/min Est GFR ( Amer) ml/min Est GFR (Non-Af Amer) ml/min BUN/Creatinine Ratio (10-20) Glucose (70-99) mg/dl Osmolality (280-300) mOsm/kg Lactate 1.4 (0.4-2.0) mmol/L Calcium (8.5-10.1) mg/dl Magnesium (1.8-2.4) mg/dl Total Bilirubin (0.2-1) mg/dl AST (15-37) U/L ALT (12-78) U/L Alkaline Phosphatase (45-117) U/L Troponin I (0-0.045) ng/ml C-Reactive Protein (0-0.29) mg/dl Total Protein (6.4-8.2) gm/dl Albumin (3.4-5.0) gm/dl Globulin (2.5-4.0) gm/dl Albumin/Globulin Ratio (0.9-2) Procalcitonin COVID-19 Eval Order SARS-CoV-2 (PCR) (Negative) 07/04/21 07/04/21 07/04/21 Range/Units 11:04 11:26 11:26 WBC (4.8-10.8) K/uL RBC (4.2-5.4) M/uL Hgb (12.0-16.0) g/dL Hct (37-47) % MCV (80-100) fL MCH (25-34) pg MCHC (32-36) g/dL RDW Std Deviation (36.4-46.3) fL RDW Coeff of Anika (11.5-14.5) % Plt Count (130-400) K/uL MPV (7.4-10.4) fL Immature Gran % (Auto) % Neut % (Auto) % Lymph % (Auto) % Wood % (Auto) % Eos % (Auto) % Baso % (Auto) % Neut # (Auto) (1.4-6.5) K/uL Lymph # (Auto) (1.2-3.4) K/uL Wood # (Auto) (0.11-0.59) K/uL Eos # (Auto) (0-0.5) K/uL Baso # (Auto) (0-0.2) K/uL Immature Gran # (Auto) (0.00-0.02) K/uL PT (9.0-12.0) Seconds INR (0.9-1.1) APTT (21.0-31.0) Seconds PTT Ratio D-Dimer (0-500) ug/L FEU VBG pH (7.36-7.41) VBG pCO2 (38-50) mmHg VBG pO2 mmHg VBG HCO3 mmol/L VBG O2 Saturation % VBG Base Excess mEq/L Barometric Pressure mm/Hg Sodium (136-145) mmol/L Potassium 3.9 (3.5-5.1) mmol/L Chloride (98-107) mmol/L Carbon Dioxide (21-32) mmol/L Anion Gap (3-11) BUN (7-18) mg/dl Creatinine (0.6-1.2) mg/dl Est Cr Clr Drug Dosing ml/min Est GFR ( Amer) ml/min Est GFR (Non-Af Amer) ml/min BUN/Creatinine Ratio (10-20) Glucose (70-99) mg/dl Osmolality 279 L (280-300) mOsm/kg Lactate (0.4-2.0) mmol/L Calcium (8.5-10.1) mg/dl Magnesium 2.0 (1.8-2.4) mg/dl Total Bilirubin (0.2-1) mg/dl AST 38 H (15-37) U/L ALT (12-78) U/L Alkaline Phosphatase (45-117) U/L Troponin I (0-0.045) ng/ml C-Reactive Protein (0-0.29) mg/dl Total Protein (6.4-8.2) gm/dl Albumin (3.4-5.0) gm/dl Globulin (2.5-4.0) gm/dl Albumin/Globulin Ratio (0.9-2) Procalcitonin 0.14 COVID-19 Eval Order SARS-CoV-2 (PCR) (Negative) 07/04/21 07/04/21 07/04/21 Range/Units 11:26 12:10 12:10 WBC (4.8-10.8) K/uL RBC (4.2-5.4) M/uL Hgb (12.0-16.0) g/dL Hct (37-47) % MCV (80-100) fL MCH (25-34) pg MCHC (32-36) g/dL RDW Std Deviation (36.4-46.3) fL RDW Coeff of Anika (11.5-14.5) % Plt Count (130-400) K/uL MPV (7.4-10.4) fL Immature Gran % (Auto) % Neut % (Auto) % Lymph % (Auto) % Wood % (Auto) % Eos % (Auto) % Baso % (Auto) % Neut # (Auto) (1.4-6.5) K/uL Lymph # (Auto) (1.2-3.4) K/uL Wood # (Auto) (0.11-0.59) K/uL Eos # (Auto) (0-0.5) K/uL Baso # (Auto) (0-0.2) K/uL Immature Gran # (Auto) (0.00-0.02) K/uL PT (9.0-12.0) Seconds INR (0.9-1.1) APTT (21.0-31.0) Seconds PTT Ratio D-Dimer (0-500) ug/L FEU VBG pH (7.36-7.41) VBG pCO2 (38-50) mmHg VBG pO2 mmHg VBG HCO3 mmol/L VBG O2 Saturation % VBG Base Excess mEq/L Barometric Pressure mm/Hg Sodium (136-145) mmol/L Potassium (3.5-5.1) mmol/L Chloride (98-107) mmol/L Carbon Dioxide (21-32) mmol/L Anion Gap (3-11) BUN (7-18) mg/dl Creatinine (0.6-1.2) mg/dl Est Cr Clr Drug Dosing ml/min Est GFR ( Amer) ml/min Est GFR (Non-Af Amer) ml/min BUN/Creatinine Ratio (10-20) Glucose (70-99) mg/dl Osmolality (280-300) mOsm/kg Lactate (0.4-2.0) mmol/L Calcium (8.5-10.1) mg/dl Magnesium (1.8-2.4) mg/dl Total Bilirubin (0.2-1) mg/dl AST (15-37) U/L ALT (12-78) U/L Alkaline Phosphatase (45-117) U/L Troponin I (0-0.045) ng/ml C-Reactive Protein 15.00 H (0-0.29) mg/dl Total Protein (6.4-8.2) gm/dl Albumin (3.4-5.0) gm/dl Globulin (2.5-4.0) gm/dl Albumin/Globulin Ratio (0.9-2) Procalcitonin COVID-19 Eval Order Covid19 at [facility] SARS-CoV-2 (PCR) POSITIVE A* (Negative) Imaging Data Radiologist's Impression: Chest CTA 07/04/21 09:53 CT ANGIOGRAM OF THE CHEST CLINICAL HISTORY: ro PE COMPARISON STUDY: No previous studies for comparison. TECHNIQUE: Following the IV administration of 112 mL of Optiray, CT angiogram of the thorax was performed from the thoracic inlet to the lung bases utilizing the pulmonary embolus protocol. Images are reviewed in the axial, sagittal, and coronal planes. IV contrast was administered without complication. MIP imaging was performed. A dose lowering technique was utilized adhering to the principles of ALARA. CT DOSE: 295.74 mGy.cm FINDINGS: There is adequate opacification within main pulmonary artery. No evidence of acute pulmonary embolus is seen within main and lobar branches of the pulmonary artery. Questionable linear area of decreased attenuation/filling defect is seen within right middle lobe branch of the pulmonary artery which could be artifactual due to motion artifact or represent nonocclusive web (which could be sequela from prior PE () Main pulmonary artery is normal in caliber. There is no right heart strain seen. Heart is normal in size without pericardial effusion. Mild coronary calcifications are seen. Calcifications of the mitral annulus are demonstrated. There is no axillary, supra clavicle or internal mammary lymphadenopathy seen. Multiple mediastinal lymph nodes are prominent measuring up to 1.1 cm in short axis in the pretracheal region. Visualized portion of thyroid gland shows 1.7 cm hypoattenuating nodule within right thyroid lobe. Distal aspect of esophagus is patulous with questionable thickening of its wall. Mild hiatal hernia is seen. There was no evidence of thoracic aortic dilatation. Tracheobronchial tree is patent. This study is acquired during partial expiratory phase. Patchy mixed groundglass and infiltrative opacities are seen bilaterally. No evidence of pleural effusion. Limited evaluation of upper abdominal viscera shows 2.9 cm hypoattenuating lesion within the right lobe of the liver parenchyma (4/1) Osseous structures: Degenerative changes of the spine. IMPRESSION: 1. No definite acute pulmonary embolus is seen. Questionable linear density w ithin right middle lobe pulmonary artery which might be artifactual or represent a web (could be sequela from prior PE). No secondary signs of pulmonary embolus. 2. Patchy airspace opacities throughout bilateral lungs could represent multifocal pneumonia/Covid. Mild mediastinal lymphadenopathy. Short-term follow- up in 4-[address] of the chest is recommended to document resolution. 3. Questionable hypoattenuating lesion within the right lobe of the liver is incompletely evaluated on this nondedicated exam. Differential diagnosis include hemangioma, cyst or neoplastic process. Please correlate above-mentioned findings with prior history of malignancy. 4. Right thyroid nodule. 5. Hiatal hernia. 6. The rest of findings as above. ACT 112: Negative or not required by law. The above report was generated using voice recognition software. It may contain grammatical, syntax or spelling errors. Electronically signed by: Danielle Crowley DO 07/04/2021 11:48 AM Chest X-Ray 07/04/21 09:53 XR chest 1V portable CLINICAL HISTORY: SEPSIS COMPARISON STUDY: No previous studies for comparison. FINDINGS: No pneumothorax. No pleural effusion. Patchy mixed reticular and airspace opacities are seen bilaterally. Lung volumes are decreased. Cardiomediastinal silhouette appear to be within normal limits however left cardiac border is obscured by surrounding opacities. Aorta is tortuous and calcified. Pulmonary vasculature is indistinct.. Osseous structures: unremarkable IMPRESSION: 1. Bilateral mixed reticular and airspace opacities, could represent multifocal pneumonia. 2. Atherosclerosis. ACT 112: Negative or not required by law. The above report was generated using voice recognition software. It may contain grammatical, syntax or spelling errors. Electronically signed by: Danielle Crowley DO 07/04/2021 10:15 AM ECG Data Interpretation: Sinus rhythm was of 96. ND 160 QRS [address] elevation or ST depression. [facility] Narrative 0952: The patient was evaluated in room C2. A complete history and physical exam was performed Cardiac monitoring: An order was placed for continuous cardiac monitoring. The monitor shows a rate of 90 with sinus rhythm Patient found to be hypoxic on room air. Supplemental oxygen was applied via nasal cannula which improved his oxygen saturation. Decadron 6 mg IV push ordered for the patient given his hypoxia and recent COVID-19 diagnosis. 1205: Vital signs stable on supplemental oxygen via nasal cannula. Imaging s hows no PE but does show bilateral groundglass opacities. Labs are within normal limits with exception of sodium 128. Patient will be admitted to the [facility] team Dr. Quick notified. Impression & Plan Hypoxia, Pneumonia due to COVID-19 virus Critical Care Time Critical Care Time: Yes Total Critical Care Time: 46 I have personally spent greater than 46 minutes of critical care time in the direct management of this patient. This includes bedside care, interpretation of diagnostic studies, and testing, discussion with consultants, patient, and family members, and other required patient management activities. This 46 minutes is in excess of all separately billable procedures. Discharge Plan Visit Data Chief Complaint: Respiratory Problems Stated Complaint: COVID POSITIVE OXYGEN LEVELS ARE DROPPING ED Provider: Cliff Packer Discharge Problem: Hypoxia, Pneumonia due to COVID-19 virus Patient Disposition: Admitted As Inpatient Discharge Instructions Interventions: ED Discharge Assessment Last Done: 07/04/21 13:59
[2021-07-04] MEDS: INSULIN ASPART 100 UNITS/ML 3 ML PEN SC SCH ×2 (17:32→20:55)
--- NOTE | 2021-07-04 20:44 | Electrocardiogram Report ---
Test Reason : Blood Pressure : / mmHG Vent. Rate : 096 BPM Atrial Rate : 096 BPM P-R Int : 160 ms QRS Dur : 066 ms QT Int : 328 ms P-R-T Axes : 041 -33 025 degrees QTc Int : 414 ms Poor data quality, interpretation may be adversely affected Sinus rhythm Left axis deviation Septal infarct , age undetermined Inferior infarct , age undetermined Abnormal ECG No previous ECGs available Confirmed by Luis Felipe Palma ([id number]) on 07/04/2021 8:43:59 PM Referred By: REFERRED SELF Confirmed By:Luis Felipe Palma
[2021-07-04] MEDS: busPIRone 7.5 MG TAB PO SCH (20:54)
[2021-07-04] MEDS ORDERED: INSULIN GLARGINE SOLOSTAR 100 UNITS/ML 3 ML PEN SC SCH (21:00)
[2021-07-05] MEDS: INSULIN ASPART 100 UNITS/ML 3 ML PEN SC SCH ×6 (00:11→20:58)
[2021-07-05] MEDS ORDERED: CALCIUM CARBONATE 500 MG CHEWABLE TAB PO ONE (04:15)
[2021-07-05 07:56] LABS: Basophils # (auto) 0.01 K/uL (0-0.2); Basophils % (auto) 0.1 %; Hematocrit (blood only) 35.2 % (37-47); Hemoglobin 11.9 g/dL (12.0-16.0); Immature Granulocytes # (auto) 0.04 K/uL (0.00-0.02); Immature Granulocytes % (auto) 0.4 %; Lymphocytes # (auto) 1.01 K/uL (1.2-3.4); Lymphocytes % (auto) 9.8 %; Mean Corpuscular Hemoglobin 28.9 pg (25-34); Mean Corpuscular Hgb Conc 33.8 g/dL (32-36); Mean Corpuscular Volume 85.4 fL (80-100); Mean Platelet Volume 9.6 fL (7.4-10.4); Monocytes # (auto) 0.64 K/uL (0.11-0.59); Monocytes % (auto) 6.2 %; Neutrophils # (auto) 8.65 K/uL (1.4-6.5); Neutrophils % (auto) 83.5 %; Platelet Count 383 K/uL (130-400); RDW Coefficient of Variation 13.9 % (11.5-14.5); RDW Standard Deviation 43.4 fL (36.4-46.3); Red Blood Count 4.12 M/uL (4.2-5.4); White Blood Count 10.35 K/uL (4.8-10.8)
[2021-07-05 08:27] LABS: Estimated Average Glucose 220 mg/dl; Hemoglobin A1C 9.3 % (4.5-5.6)
[2021-07-05 08:29] LABS: Albumin Level 2.6 gm/dl (3.4-5.0); BUN Creatinine Ratio 27.4 (10-20); Creatinine Clr Calc Pharmacy 32.2 ml/min; Est GFR (African American) 50.1 ml/min; Est GFR (Non-African American) 43.3 ml/min; Potassium 4.1 mmol/L (3.5-5.1)
[2021-07-05 08:32] LABS: Albumin Globulin Ratio 0.6 (0.9-2); Bilirubin,Total 0.4 mg/dl (0.2-1); Globulin 4.2 gm/dl (2.5-4.0); Total Protein 6.8 gm/dl (6.4-8.2)
[2021-07-05] MEDS ORDERED: AZITHROMYCIN 250 MG in DEXTROSE 5% 250 ML IV SCH (09:00)
[2021-07-05] MEDS ORDERED: ENOXAPARIN INJ 40 MG/0.4 ML SYR SQ SCH (09:00)
[2021-07-05] MEDS: dexAMETHasone 6 MG in SYRINGE 0 ML IV SCH (09:08)
[2021-07-05] MEDS: dilTIAZem HCL 30 MG TAB PO SCH ×3 (09:08→20:58)
[2021-07-05] MEDS: busPIRone 7.5 MG TAB PO SCH ×3 (09:08→20:58)
[2021-07-05] MEDS: INSULIN HUMAN NPH SC SCH (10:27)
--- NOTE | 2021-07-05 14:29 | Pharmacy Report ---
Pharmacy Glycemic Short Note 2 - Date of Service July 05, 2021 - Glycemic Short BSG Results (Last 24 hours): 07/04/21 07/04/21 07/04/21 16:57 17:00 20:40 Glucose POC Glucose 437 H* 414 H* 240 H 07/05/21 07/05/21 07/05/21 00:06 03:30 06:40 Glucose 114 H POC Glucose 108 H 97 07/05/21 07/05/21 07:46 11:58 Glucose POC Glucose 119 H 249 H OUTPATIENT ANTIDIABETIC REGIMEN: * Glimepiride * Metformin * A1c = 9.3% (07/05/21) ASSESSMENT: 07/05/21: * BSGs greatly improved overnight after the initiation of SQ insulin. * Pre-lunch BSG elevated today (249mg/dL). * Novolog parameters tightened slightly to provide additional prandial coverage. * IV azithromycin converted to PO to eliminate dextrose. * Pt remains on IV DXM 6mg daily. 07/04 * 76yo T2DM female with poor outpatient control per recent A1c. Pt follows with [facility]- at last visit plan was for patient to work on her diet (limiting CHO) to improve glycemic control which she has been successful with in the past. Will recheck A1c to see progress of this plan * Pt admitted with COVID-19. Starting high dose IV steroids with dexamethasone 10mg IV x 1 dose today and then 6mg IV daily x 9 days * Will start SQ basal bolus insulin regimen with Lantus + NovoLog for baseline BSG control while PO antidiabetic agents on hold for admission. * Will start weight based NPH for steroid induced hyperglycemia. * NPH insulin is used to counteract the hyperglycemic effect of once daily steroids. * The dose of NPH given is dependent on the steroid dose given * For doses of prednisone 40mg/day (or equivalent) or above NPH dose should be 0.4 units/kg * NPH dosing above is given in addition to patients basal insulin needs * Typically, patients will also need rapid-acting insulin with meals PLAN FOR INPATIENT GLYCEMIC CONTROL: * Hold outpatient oral diabetes medications * Basal insulin * Lantus 20 units (0.3 units/kg) SQ HS - will consider adding a BID dosing tomorrow based on BSGs * Steroid induced hyperglycemia * NPH 25 units (0.4 units/kg) Sq daily with IV dexamethasone * Bolus insulin * NovoLog per scale ACHS or Q6hrs while NPO * Goal Range: Low 100 mg/dL - High 140 mg/dL * Correction Factor: 25 mg/dL/unit * Nutritional / Prandial insulin per carb ratio of 1 unit per 7 grams CHO consumed PLAN FOR DISCHARGE: * TBD based on A1c 07/05 and steroid taper plan post dc
--- NOTE | 2021-07-05 15:13 | Hospitalist Progress Note ---
Date of Service July 05, 2021 Assessment & Plan (1) Pneumonia due to COVID-19 virus: Plan: Unvaccinated Dexamethasone total 10mg now then 6mg IV daily for total of 10 days. Reassess with CRP in 48 hours Defer tocilizumab due to low O2 requirement at the current time Above discussed with pulmonology, Dr Cheo Taylorivir deferred due to low eGFR and at day 10 of illness Cover for atypical pneumonia given elevated neutrophil count with azithromycin Procalcitonin negative therefore will hold of typical coverage unless procalcitonin increases or patient deteriorates. (2) Acute respiratory failure with hypoxia: Plan: Secondary to COVID-19 pneumonia as above Questionable pulmonary emboli and possible bacterial secondary infection much less likely contributing. Aim O2 sats >= 94% (3) Pulmonary emboli: Plan: ruled out. will give dvt prophylaxis dose. (4) Hyponatremia: Plan: Acute on chronic, clinically dry, sodium correction for hyperglycemia = 130 ?nutritional Serum osm, urine osm/Na pending to further investigate Will defer IV fluids to avoid worsening respiratory status and monitor sodium as glucose improves (5) Hypertension: Plan: Antihypertensives not taken by patient for last two days and blood pressure stable Continue to hold lisinopril in setting of worsening renal function Switch diltiazem ER to IR 60mg TID with hold parameters to allow better control (6) Diabetes mellitus type 2, uncontrolled: Plan: HbA1C 10 in April. Repeat with AM labs. Hold home meds of glimepiride and metformin Consult pharmacy for glycemic control with basal bolus insulin in setting of steroid use. (7) Liver lesion: Plan: Incidental finding. AFP with AM labs. Follow up for dedicated imaging as outpatient. (8) Right thyroid nodule: Plan: Incidental finding. Follow up US thyroid, TSH as outpatient. (9) Chronic kidney disease, stage 3: Plan: Close to baseline. No IV fluids at current time as reportedly drinking well and need to avoid worsening respiratory status. Monitor BMP daily. Plan: VTE Prophylaxis - Lovenox treatment dose as above Diet - T2DM Disposition - admit to med/tele Admission and Anticipated Discharge Date Admission Date: July 04, 2021 Subjective 76 yo female reports no change from yesterday. Review of Systems Review of Systems: All systems reviewed & are unremarkable except as noted in HPI & below Physical Exam Physical Exam: Constitutional: well developed and well nourished; no acute distress Eyes: + anicteric sclerae; normal pupil size ENMT: Mouth: + dry oral mucous membranes Neck: trachea midline, no thyromegaly Respiratory: + retractions, + uses accessory muscles, able to speak in complete sentences and + tachypneic; Auscultation: + crackles (fine throughout); no diminished lung sounds, no rhonchi and no wheezes Cardiovascular: Rate/Rhythm: RRR Heart Sounds: no murmur Vessels: posterior tibial pulses present, dorsalis pedis pulses present and radial pulses present Extremities: normal capillary refill; no calf tenderness and no pedal edema Gastrointestinal (Abdomen): normal bowel sounds, soft, nontender, no hepatosplenomegaly Musculoskeletal: no cyanosis or clubbing, extremities motor strength 5/5 Skin: no rashes, warm and dry Neurologic: moves all extremities and awake; no focal motor deficits (no lateralizing weakness) and not confused Psychiatric: A+Ox3, euthymic affect Results & Data Results & Data ([facility]) Vital Signs (Past 12 Hours) Vital Signs Temp Pulse Resp BP BP Pulse Ox 07/05/21 14:01 36.6 C 76 16 105/63 91 07/05/21 11:32 36.4 C L 84 20 116/65 90 07/05/21 07:49 36.4 C L 82 18 113/59 L 90 07/05/21 05:13 93 07/05/21 04:24 90 07/05/21 03:57 90 07/05/21 03:33 36.4 C L 77 20 115/72 92 PG Care Time/CCT Total # of Minutes Spent Total Time Spent with Patient: Total time spent is greater than 50% in coordination of care (as documented) at patient's floor/unit and/or counseling patient: Coding Level of Care Code 78636 Subseq Hosp Care Lvl 2 Diagnoses Pneumonia due to COVID-19 virus U07.1; J12.82 Acute respiratory failure with hypoxia J96.01 Pulmonary emboli I26.99 Hyponatremia E87.1 Hypertension I10 Diabetes mellitus type 2, uncontrolled E11 Glycemic state: with hyperglycemia Liver lesion K76.9 Right thyroid nodule E04.1 Chronic kidney disease, stage 3 N18.3 Time Spent (min) 25 (1) Diabetes mellitus type 2, uncontrolled Glycemic state: with hyperglycemia Qualified Code(s): E11.65 - Type 2 diabetes mellitus with hyperglycemia
[2021-07-05] MEDS: INSULIN GLARGINE SOLOSTAR 100 UNITS/ML 3 ML PEN SC SCH (21:40)
[2021-07-06 07:15] LABS: Basophils # (auto) 0.01 K/uL (0-0.2); Basophils % (auto) 0.1 %; Hematocrit (blood only) 36.1 % (37-47); Hemoglobin 12.6 g/dL (12.0-16.0); Immature Granulocytes # (auto) 0.16 K/uL (0.00-0.02); Immature Granulocytes % (auto) 0.9 %; Lymphocytes # (auto) 0.93 K/uL (1.2-3.4); Lymphocytes % (auto) 5.4 %; Mean Corpuscular Hemoglobin 29.6 pg (25-34); Mean Corpuscular Hgb Conc 34.9 g/dL (32-36); Mean Corpuscular Volume 84.9 fL (80-100); Mean Platelet Volume 9.3 fL (7.4-10.4); Monocytes # (auto) 0.94 K/uL (0.11-0.59); Monocytes % (auto) 5.5 %; Neutrophils % (auto) 88.1 %; Platelet Count 441 K/uL (130-400); RDW Coefficient of Variation 13.8 % (11.5-14.5); RDW Standard Deviation 43.1 fL (36.4-46.3); Red Blood Count 4.25 M/uL (4.2-5.4); White Blood Count 17.24 K/uL (4.8-10.8)
[2021-07-06 07:42] LABS: Albumin Level 2.8 gm/dl (3.4-5.0); BUN Creatinine Ratio 31.2 (10-20); Creatinine Clr Calc Pharmacy 35.7 ml/min; Est GFR (African American) 56.9 ml/min; Est GFR (Non-African American) 49.1 ml/min; Potassium 4.1 mmol/L (3.5-5.1)
[2021-07-06 07:45] LABS: Albumin Globulin Ratio 0.7 (0.9-2); Bilirubin,Total 0.5 mg/dl (0.2-1); C Reactive Protein 4.46 mg/dl (0-0.29); Total Protein 6.8 gm/dl (6.4-8.2)
[2021-07-06] MEDS: dexAMETHasone 6 MG in SYRINGE 0 ML IV SCH (08:28)
[2021-07-06] MEDS: ENOXAPARIN INJ 40 MG/0.4 ML SYR SQ SCH (08:28)
[2021-07-06] MEDS: dilTIAZem HCL 30 MG TAB PO SCH ×3 (08:29→19:53)
[2021-07-06] MEDS: AZITHROMYCIN 250 MG TAB PO SCH (08:30)
[2021-07-06] MEDS: busPIRone 7.5 MG TAB PO SCH ×3 (08:30→19:53)
[2021-07-06] MEDS: INSULIN ASPART 100 UNITS/ML 3 ML PEN SC SCH ×4 (08:30→20:46)
[2021-07-06] MEDS: INSULIN HUMAN NPH SC SCH (08:30)
--- NOTE | 2021-07-06 10:51 | Pharmacy Report ---
Pharmacy Glycemic Short Note 2 - Date of Service July 06, 2021 - Glycemic Short BSG Results (Last 24 hours): 07/05/21 07/05/21 07/05/21 11:58 16:01 20:55 Glucose POC Glucose 249 H 225 H 85 07/06/21 07/06/21 06:39 07:54 Glucose 107 H POC Glucose 109 H OUTPATIENT ANTIDIABETIC REGIMEN: * Glimepiride * Metformin * A1c = 9.3% (07/05/21) ASSESSMENT: 07/06/21: * Ms Hall received 51 units of insulin yesterday. * Lantus dose was reduced last evening for HS BSG below goal. * No further changes required at this time. 07/05 * BSGs greatly improved overnight after the initiation of SQ insulin. * Pre-lunch BSG elevated today (249mg/dL). * Novolog parameters tightened slightly to provide additional prandial coverage. * IV azithromycin converted to PO to eliminate dextrose. * Pt remains on IV DXM 6mg daily. 07/04 * 76yo T2DM female with poor outpatient control per recent A1c. Pt follows with [facility]- at last visit plan was for patient to work on her diet (limiting CHO) to improve glycemic control which she has been successful with in the past. Will recheck A1c to see progress of this plan * Pt admitted with COVID-19. Starting high dose IV steroids with dexamethasone 10mg IV x 1 dose today and then 6mg IV daily x 9 days * Will start SQ basal bolus insulin regimen with Lantus + NovoLog for baseline BSG control while PO antidiabetic agents on hold for admission. * Will start weight based NPH for steroid induced hyperglycemia. * NPH insulin is used to counteract the hyperglycemic effect of once daily steroids. * The dose of NPH given is dependent on the steroid dose given * For doses of prednisone 40mg/day (or equivalent) or above NPH dose should be 0.4 units/kg * NPH dosing above is given in addition to patients basal insulin needs * Typically, patients will also need rapid-acting insulin with meals PLAN FOR INPATIENT GLYCEMIC CONTROL: * Hold outpatient oral diabetes medications * Basal insulin * Lantus 10 units SQ HS * Steroid induced hyperglycemia * NPH 25 units (0.4 units/kg) Sq daily with IV dexamethasone * Bolus insulin * NovoLog per scale ACHS or Q6hrs while NPO * Goal Range: Low 100 mg/dL - High 140 mg/dL * Correction Factor: 25 mg/dL/unit * Nutritional / Prandial insulin per carb ratio of 1 unit per 7 grams CHO consumed PLAN FOR DISCHARGE: * TBD based on A1c 07/05 and steroid taper plan post dc
--- NOTE | 2021-07-06 16:19 | Hospitalist Progress Note ---
Date of Service July 06, 2021 Assessment & Plan (1) Pneumonia due to COVID-19 virus: Plan: Unvaccinated Dexamethasone total 10mg now then 6mg IV daily for total of 10 days. Reassess with CRP in 48 hours Defer tocilizumab due to low O2 requirement at the current time Above discussed with pulmonology, Dr Cheo Taylorivir deferred due to low eGFR and at day 10 of illness Cover for atypical pneumonia given elevated neutrophil count with azithromycin Procalcitonin negative therefore will hold of typical coverage unless procalcitonin increases or patient deteriorates. will continue above treatment. (2) Acute respiratory failure with hypoxia: Plan: Secondary to COVID-19 pneumonia as above Questionable pulmonary emboli and possible bacterial secondary infection much less likely contributing. Aim O2 sats >= 94% (3) Pulmonary emboli: Plan: ruled out. will give dvt prophylaxis dose. (4) Hyponatremia: Plan: Acute on chronic, clinically dry, sodium correction for hyperglycemia = 130 ?nutritional Serum osm, urine osm/Na pending to further investigate Will defer IV fluids to avoid worsening respiratory status and monitor sodium as glucose improves (5) Hypertension: Plan: Antihypertensives not taken by patient for last two days and blood pressure stable Continue to hold lisinopril in setting of worsening renal function Switch diltiazem ER to IR 60mg TID with hold parameters to allow better control (6) Diabetes mellitus type 2, uncontrolled: Plan: HbA1C 10 in April. Repeat with AM labs. Hold home meds of glimepiride and metformin Consult pharmacy for glycemic control with basal bolus insulin in setting of steroid use. (7) Liver lesion: Plan: Incidental finding. AFP with AM labs. Follow up for dedicated imaging as outpatient. (8) Right thyroid nodule: Plan: Incidental finding. Follow up US thyroid, TSH as outpatient. (9) Chronic kidney disease, stage 3: Plan: Close to baseline. No IV fluids at current time as reportedly drinking well and need to avoid worsening respiratory status. Monitor BMP daily. Plan: VTE Prophylaxis - Lovenox treatment dose as above Diet - T2DM Disposition - admit to med/tele Admission and Anticipated Discharge Date Admission Date: July 04, 2021 Subjective Patient reports no signifcant change today. She refuses to lay prone. Review of Systems Review of Systems: All systems reviewed & are unremarkable except as noted in HPI & below Physical Exam Physical Exam: Constitutional: well developed and well nourished; no acute distress Eyes: + anicteric sclerae; normal pupil size ENMT: Mouth: + dry oral mucous membranes Neck: trachea midline, no thyromegaly Respiratory: Auscultation: + crackles (fine throughout); no diminished lung sounds, no rhonchi and no wheezes Cardiovascular: Rate/Rhythm: RRR Heart Sounds: no murmur Vessels: posterior tibial pulses present, dorsalis pedis pulses present and radial pulses present Extremities: normal capillary refill; no calf tenderness and no pedal edema Gastrointestinal (Abdomen): normal bowel sounds, soft, nontender, no hepatosplenomegaly Musculoskeletal: no cyanosis or clubbing, extremities motor strength 5/5 Skin: no rashes, warm and dry Neurologic: moves all extremities and awake; no focal motor deficits (no lateralizing weakness) and not confused Psychiatric: A+Ox3, euthymic affect Results & Data Results & Data ([facility]) Vital Signs (Past 12 Hours) Vital Signs Temp Pulse Pulse Resp BP BP Pulse Ox 07/06/21 15:27 36.5 C 78 18 125/72 90 07/06/21 14:38 79 07/06/21 12:38 36.5 C 99 H 20 114/66 91 07/06/21 10:27 97 07/06/21 08:16 36.4 C L 88 24 139/71 90 07/06/21 07:52 75 PG Care Time/CCT Total # of Minutes Spent Total Time Spent with Patient: Total time spent is greater than 50% in coordination of care (as documented) at patient's floor/unit and/or counseling patient: Coding Level of Care Code 38866 Subseq Hosp Care Lvl 2 Diagnoses Pneumonia due to COVID-19 virus U07.1; J12.82 Acute respiratory failure with hypoxia J96.01 Pulmonary emboli I26.99 Hyponatremia E87.1 Hypertension I10 Diabetes mellitus type 2, uncontrolled E11.65 Glycemic state: with hyperglycemia Liver lesion K76.9 Right thyroid nodule E04.1 Chronic kidney disease, stage 3 N18.3 Time Spent (min) 25 (1) Diabetes mellitus type 2, uncontrolled Glycemic state: with hyperglycemia Qualified Code(s): E11.65 - Type 2 diabetes mellitus with hyperglycemia
[2021-07-06] MEDS: INSULIN GLARGINE SOLOSTAR 100 UNITS/ML 3 ML PEN SC SCH (20:46)
[2021-07-07 06:05] LABS: Basophils # (auto) 0.03 K/uL (0-0.2); Basophils % (auto) 0.2 %; Hematocrit (blood only) 38.6 % (37-47); Hemoglobin 13.1 g/dL (12.0-16.0); Immature Granulocytes # (auto) 0.21 K/uL (0.00-0.02); Immature Granulocytes % (auto) 1.7 %; Lymphocytes # (auto) 1.23 K/uL (1.2-3.4); Lymphocytes % (auto) 9.7 %; Mean Corpuscular Hemoglobin 29.1 pg (25-34); Mean Corpuscular Hgb Conc 33.9 g/dL (32-36); Mean Corpuscular Volume 85.8 fL (80-100); Mean Platelet Volume 8.9 fL (7.4-10.4); Monocytes # (auto) 0.97 K/uL (0.11-0.59); Monocytes % (auto) 7.6 %; Neutrophils # (auto) 10.24 K/uL (1.4-6.5); Neutrophils % (auto) 80.8 %; Platelet Count 473 K/uL (130-400); RDW Coefficient of Variation 13.9 % (11.5-14.5); RDW Standard Deviation 43.5 fL (36.4-46.3); White Blood Count 12.68 K/uL (4.8-10.8)
[2021-07-07 06:58] LABS: Albumin Globulin Ratio 0.7 (0.9-2); Albumin Level 2.8 gm/dl (3.4-5.0); BUN Creatinine Ratio 32.4 (10-20); Bilirubin,Total 0.6 mg/dl (0.2-1); Calcium 8.9 mg/dl (8.5-10.1); Creatinine Clr Calc Pharmacy 43.9 ml/min; Est GFR (African American) 72.9 ml/min; Est GFR (Non-African American) 62.9 ml/min; Globulin 4.1 gm/dl (2.5-4.0); Potassium 3.6 mmol/L (3.5-5.1); Total Protein 6.9 gm/dl (6.4-8.2)
[2021-07-07] MEDS: dilTIAZem HCL 30 MG TAB PO SCH ×3 (09:09→20:04)
[2021-07-07] MEDS: dexAMETHasone 6 MG in SYRINGE 0 ML IV SCH (09:09)
[2021-07-07] MEDS: AZITHROMYCIN 250 MG TAB PO SCH (09:10)
[2021-07-07] MEDS: ENOXAPARIN INJ 40 MG/0.4 ML SYR SQ SCH (09:10)
[2021-07-07] MEDS: INSULIN HUMAN NPH SC SCH (09:11)
[2021-07-07] MEDS: busPIRone 7.5 MG TAB PO SCH ×3 (09:15→20:04)
[2021-07-07] MEDS: INSULIN ASPART 100 UNITS/ML 3 ML PEN SC SCH ×4 (09:24→22:13)
--- NOTE | 2021-07-07 11:36 | Pharmacy Report ---
Pharmacy Glycemic Short Note 2 - Date of Service July 07, 2021 - Glycemic Short BSG Results (Last 24 hours): 07/06/21 07/06/21 07/06/21 12:13 16:58 20:05 Glucose POC Glucose 185 H 124 H 142 H 07/07/21 07/07/21 07/07/21 05:46 07:54 11:16 Glucose 48 L* POC Glucose 94 117 H OUTPATIENT ANTIDIABETIC REGIMEN: * Glimepiride * Metformin * A1c = 9.3% (07/05/21) ASSESSMENT: 07/07/21: * Pt received 48 units of insulin yesterday, with BSGs 109,185, 124, 142. * Fasting hypoglycemia noted this morning, so Lantus discontinued. * Suspect that NPH/Novolog will provide adequate control throughout the day while pt remains on IV DXM. * Will continue to follow and adjust as needed. 07/06 * Ms Hall received 51 units of insulin yesterday. * Lantus dose was reduced last evening for HS BSG below goal. * No further changes required at this time. 07/05 * BSGs greatly improved overnight after the initiation of SQ insulin. * Pre-lunch BSG elevated today (249mg/dL). * Novolog parameters tightened slightly to provide additional prandial coverage. * IV azithromycin converted to PO to eliminate dextrose. * Pt remains on IV DXM 6mg daily. 07/04 * 76yo T2DM female with poor outpatient control per recent A1c. Pt follows with [facility]- at last visit plan was for patient to work on her diet (limiting CHO) to improve glycemic control which she has been successful with in the past. Will recheck A1c to see progress of this plan * Pt admitted with COVID-19. Starting high dose IV steroids with dexamethasone 10mg IV x 1 dose today and then 6mg IV daily x 9 days * Will start SQ basal bolus insulin regimen with Lantus + NovoLog for baseline BSG control while PO antidiabetic agents on hold for admission. * Will start weight based NPH for steroid induced hyperglycemia. * NPH insulin is used to counteract the hyperglycemic effect of once daily steroids. * The dose of NPH given is dependent on the steroid dose given * For doses of prednisone 40mg/day (or equivalent) or above NPH dose should be 0.4 units/kg * NPH dosing above is given in addition to patients basal insulin needs * Typically, patients will also need rapid-acting insulin with meals PLAN FOR INPATIENT GLYCEMIC CONTROL: * Hold outpatient oral diabetes medications * Basal insulin * none at this time * Steroid induced hyperglycemia * NPH 25 units (0.4 units/kg) Sq daily with IV dexamethasone * Bolus insulin * NovoLog per scale ACHS or Q6hrs while NPO * Goal Range: Low 100 mg/dL - High 140 mg/dL * Correction Factor: 25 mg/dL/unit * Nutritional / Prandial insulin per carb ratio of 1 unit per 7 grams CHO consumed PLAN FOR DISCHARGE: * TBD based on A1c 07/05 and steroid taper plan post dc
[2021-07-07] MEDS ORDERED: GLUCOSE 40% GEL 15 GM TUBE PO PRN (11:45)
[2021-07-07] MEDS ORDERED: DEXTROSE 50% 50 ML SYRINGE IV PRN (11:45)
[2021-07-07] MEDS ORDERED: CARBOHYDRATES FOR HYPOGLYCEMIA PO PRN (11:45)
[2021-07-07] MEDS ORDERED: GLUCAGON FOR INJ 1 MG VIAL IM PRN (11:45)
[2021-07-07] MEDS ORDERED: GLUCOSE 10 TABS/TUBE PO PRN (11:45)
--- NOTE | 2021-07-07 21:42 | Hospitalist Progress Note ---
Date of Service July 07, 2021 Assessment & Plan (1) Pneumonia due to COVID-19 virus: Plan: Unvaccinated Dexamethasone total 10mg now then 6mg IV daily for total of 10 days. Reassess with CRP in 48 hours Defer tocilizumab due to low O2 requirement at the current time Above discussed with pulmonology, Dr Cheo Taylorivir deferred due to low eGFR and at day 10 of illness Cover for atypical pneumonia given elevated neutrophil count with azithromycin Procalcitonin negative therefore will hold of typical coverage unless procalcitonin increases or patient deteriorates. will continue above treatment. Patient conitnues to refuse to prone despite explaining the importance. (2) Acute respiratory failure with hypoxia: Plan: Secondary to COVID-19 pneumonia as above Questionable pulmonary emboli and possible bacterial secondary infection much less likely contributing. Aim O2 sats >= 94% (3) Pulmonary emboli: Plan: ruled out. will give dvt prophylaxis dose. (4) Hyponatremia: Plan: Acute on chronic, clinically dry, sodium correction for hyperglycemia = 130 ?nutritional Serum osm, urine osm/Na pending to further investigate Will defer IV fluids to avoid worsening respiratory status and monitor sodium as glucose improves (5) Hypertension: Plan: Antihypertensives not taken by patient for last two days and blood pressure stable Continue to hold lisinopril in setting of worsening renal function Switch diltiazem ER to IR 60mg TID with hold parameters to allow better control (6) Diabetes mellitus type 2, uncontrolled: Plan: HbA1C 10 in April. Repeat with AM labs. Hold home meds of glimepiride and metformin Consult pharmacy for glycemic control with basal bolus insulin in setting of steroid use. (7) Liver lesion: Plan: Incidental finding. AFP with AM labs. Follow up for dedicated imaging as outpatient. (8) Right thyroid nodule: Plan: Incidental finding. Follow up US thyroid, TSH as outpatient. (9) Chronic kidney disease, stage 3: Plan: Close to baseline. No IV fluids at current time as reportedly drinking well and need to avoid worsening respiratory status. Monitor BMP daily. Plan: VTE Prophylaxis - Lovenox treatment dose as above Diet - T2DM Disposition - admit to med/tele Admission and Anticipated Discharge Date Admission Date: July 04, 2021 Subjective Patient reports no new symptoms. She reports she cannot prone. Review of Systems Review of Systems: All systems reviewed & are unremarkable except as noted in HPI & below Physical Exam Physical Exam: Constitutional: well developed and well nourished; no acute distress Eyes: + anicteric sclerae; normal pupil size ENMT: Mouth: + dry oral mucous membranes Neck: trachea midline, no thyromegaly Respiratory: Auscultation: + crackles (fine throughout); no diminished lung sounds, no rhonchi and no wheezes Cardiovascular: Rate/Rhythm: RRR Heart Sounds: no murmur Vessels: posterior tibial pulses present, dorsalis pedis pulses present and radial pulses present Extremities: normal capillary refill; no calf tenderness and no pedal edema Gastrointestinal (Abdomen): normal bowel sounds, soft, nontender, no hepatosplenomegaly Musculoskeletal: no cyanosis or clubbing, extremities motor strength 5/5 Skin: no rashes, warm and dry Neurologic: moves all extremities and awake; no focal motor deficits (no lateralizing weakness) and not confused Psychiatric: A+Ox3, euthymic affect Results & Data Results & Data ([facility]) Vital Signs (Past 12 Hours) Vital Signs Temp Pulse Resp BP BP Pulse Ox 07/07/21 19:34 36.6 C 86 20 139/80 91 07/07/21 16:06 36.5 C 88 18 140/85 93 07/07/21 12:04 36.8 C 89 20 129/69 97 PG Care Time/CCT Total # of Minutes Spent Total Time Spent with Patient: Total time spent is greater than 50% in c oordination of care (as documented) at patient's floor/unit and/or counseling patient: Coding Level of Care Code 52097 Subseq Hosp Care Lvl 2 Diagnoses Pneumonia due to COVID-19 virus U07.1; J12.82 Acute respiratory failure with hypoxia J96.01 Pulmonary emboli I26.99 Hyponatremia E87.1 Hypertension I10 Diabetes mellitus type 2, uncontrolled E11 Glycemic state: with hyperglycemia Liver lesion K76.9 Right thyroid nodule E04.1 Chronic kidney disease, stage 3 N18.3 Time Spent (min) 25 (1) Diabetes mellitus type 2, uncontrolled Glycemic state: with hyperglycemia Qualified Code(s): E11.65 - Type 2 diabetes mellitus with hyperglycemia
--- NOTE | 2021-07-08 00:18 | Communication Note ---
Date of Service: July 08, 2021 Keflex added for + urine culture
[2021-07-08] MEDS: dexAMETHasone 6 MG in SYRINGE 0 ML IV SCH (08:59)
[2021-07-08] MEDS: busPIRone 7.5 MG TAB PO SCH ×3 (09:00→20:11)
[2021-07-08] MEDS ORDERED: cephALEXin 250 MG CAP PO SCH (09:00)
[2021-07-08] MEDS: AZITHROMYCIN 250 MG TAB PO SCH (09:00)
[2021-07-08] MEDS: ENOXAPARIN INJ 40 MG/0.4 ML SYR SQ SCH (09:01)
[2021-07-08] MEDS: dilTIAZem HCL 30 MG TAB PO SCH ×3 (09:01→20:11)
[2021-07-08] MEDS: INSULIN ASPART 100 UNITS/ML 3 ML PEN SC SCH ×4 (10:11→21:40)
[2021-07-08] MEDS: INSULIN HUMAN NPH SC SCH (10:12)
[2021-07-08 11:35] LABS: Basophils # (auto) 0.01 K/uL (0-0.2); Basophils % (auto) 0.1 %; Hematocrit (blood only) 37.6 % (37-47); Hemoglobin 12.2 g/dL (12.0-16.0); Immature Granulocytes # (auto) 0.17 K/uL (0.00-0.02); Immature Granulocytes % (auto) 1.3 %; Lymphocytes # (auto) 1.09 K/uL (1.2-3.4); Lymphocytes % (auto) 8.6 %; Mean Corpuscular Hemoglobin 28.9 pg (25-34); Mean Corpuscular Hgb Conc 32.4 g/dL (32-36); Mean Corpuscular Volume 89.1 fL (80-100); Mean Platelet Volume 9.1 fL (7.4-10.4); Monocytes # (auto) 0.02 K/uL (0.11-0.59); Monocytes % (auto) 0.2 %; Neutrophils # (auto) 11.35 K/uL (1.4-6.5); Neutrophils % (auto) 89.8 %; Platelet Count 464 K/uL (130-400); RDW Coefficient of Variation 14.1 % (11.5-14.5); RDW Standard Deviation 46.4 fL (36.4-46.3); Red Blood Count 4.22 M/uL (4.2-5.4); White Blood Count 12.64 K/uL (4.8-10.8)
[2021-07-08 11:57] LABS: BUN Creatinine Ratio 32.2 (10-20); Calcium 8.5 mg/dl (8.5-10.1); Creatinine Clr Calc Pharmacy 40.6 ml/min; Est GFR (African American) 66.5 ml/min; Est GFR (Non-African American) 57.4 ml/min
--- NOTE | 2021-07-08 20:55 | Hospitalist Progress Note ---
Date of Service July 08, 2021 Assessment & Plan (1) Pneumonia due to COVID-19 virus: Plan: Unvaccinated Dexamethasone total 10mg now then 6mg IV daily for total of 10 days. Defer tocilizumab due to low O2 requirement at the current time Above discussed with pulmonology, Dr Cheo Taylorivir deferred due to low eGFR and at day 10 of illness Cover for atypical pneumonia given elevated neutrophil count with azithromycin Procalcitonin negative therefore will hold of typical coverage unless procalcitonin increases or patient deteriorates. will continue above treatment. Patient conitnues to refuse to prone despite explaining the importance. (2) Acute respiratory failure with hypoxia: Plan: Secondary to COVID-19 pneumonia as above Questionable pulmonary emboli and possible bacterial secondary infection much less likely contributing. Aim O2 sats >= 94% (3) Pulmonary emboli: Plan: ruled out. will give dvt prophylaxis dose. (4) Hyponatremia: Plan: Acute on chronic, clinically dry, sodium correction for hyperglycemia = 130 ?nutritional Serum osm, urine osm/Na pending to further investigate Will defer IV fluids to avoid worsening respiratory status and monitor sodium as glucose improves (5) Hypertension: Plan: Antihypertensives not taken by patient for last two days and blood pressure stable Continue to hold lisinopril in setting of worsening renal function Switch diltiazem ER to IR 60mg TID with hold parameters to allow better control (6) Diabetes mellitus type 2, uncontrolled: Plan: HbA1C 10 in April. Repeat with AM labs. Hold home meds of glimepiride and metformin Consult pharmacy for glycemic control with basal bolus insulin in setting of steroid use. (7) Liver lesion: Plan: Incidental finding. AFP with AM labs. Follow up for dedicated imaging as outpatient. (8) Right thyroid nodule: Plan: Incidental finding. Follow up US thyroid, TSH as outpatient. (9) Chronic kidney disease, stage 3: Plan: Close to baseline. No IV fluids at current time as reportedly drinking well and need to avoid worsening respiratory status. Monitor BMP daily. Plan: VTE Prophylaxis - Lovenox treatment dose as above Diet - T2DM Disposition - admit to med/tele Admission and Anticipated Discharge Date Admission Date: July 04, 2021 Subjective Patient reports she has been lying on her side. She feels she is breathing better today. Review of Systems Review of Systems: All systems reviewed & are unremarkable except as noted in HPI & below Physical Exam Physical Exam: Constitutional: well developed and well nourished; no acute distress Eyes: + anicteric sclerae; normal pupil size ENMT: Mouth: + dry oral mucous membranes Neck: trachea midline, no thyromegaly Respiratory: Auscultation: + crackles (fine throughout); no diminished lung sounds, no rhonchi and no wheezes Cardiovascular: Rate/Rhythm: RRR Heart Sounds: no murmur Vessels: posterior tibial pulses present, dorsalis pedis pulses present and radial pulses present Extremities: normal capillary refill; no calf tenderness and no pedal edema Gastrointestinal (Abdomen): normal bowel sounds, soft, nontender, no hepatosplenomegaly Musculoskeletal: no cyanosis or clubbing, extremities motor strength 5/5 Skin: no rashes, warm and dry Neurologic: moves all extremities and awake; no focal motor deficits (no lateralizing weakness) and not confused Psychiatric: A+Ox3, euthymic affect Results & Data Results & Data ([facility]) Vital Signs (Past 12 Hours) Vital Signs Temp Pulse Resp BP BP Pulse Ox 07/08/21 20:05 36.5 C 80 16 137/82 93 07/08/21 16:23 36.4 C L 79 20 138/73 93 07/08/21 11:37 36.4 C L 90 20 119/76 91 PG Care Time/CCT Total # of Minutes Spent Total Time Spent with Patient: Total time spent is greater than 50% in coordination of care (as documented) at patient's floor/unit and/or counseling patient: Coding Level of Care Code 29158 Subseq Hosp Care Lvl 2 Diagnoses Pneumonia due to COVID-19 virus U07.1; J12.82 Acute respiratory failure with hypoxia J96.01 Pulmonary emboli I26.99 Hyponatremia E87.1 Hypertension I10 Diabetes mellitus type 2, uncontrolled E11 Glycemic state: with hyperglycemia Liver lesion K76.9 Right thyroid nodule E04.1 Chronic kidney disease, stage 3 N18.3 Time Spent (min) 25 (1) Diabetes mellitus type 2, uncontrolled Glycemic state: with hyperglycemia Qualified Code(s): E11.65 - Type 2 diabetes mellitus with hyperglycemia
[2021-07-09] MEDS: dexAMETHasone 6 MG in SYRINGE 0 ML IV SCH (09:32)
[2021-07-09] MEDS: busPIRone 7.5 MG TAB PO SCH ×3 (09:33→20:57)
[2021-07-09] MEDS: dilTIAZem HCL 30 MG TAB PO SCH ×3 (09:33→20:56)
[2021-07-09] MEDS: INSULIN HUMAN NPH SC SCH (09:59)
[2021-07-09] MEDS: INSULIN ASPART 100 UNITS/ML 3 ML PEN SC SCH ×4 (09:59→21:55)
[2021-07-09] MEDS: ENOXAPARIN INJ 40 MG/0.4 ML SYR SQ SCH (10:00)
--- NOTE | 2021-07-09 12:52 | Pharmacy Report ---
Pharmacy Glycemic Short Note 2 - Date of Service July 09, 2021 - Glycemic Short BSG Results (Last 24 hours): 07/08/21 07/08/21 07/09/21 16:26 20:39 08:24 POC Glucose 86 122 H 180 H 07/09/21 12:03 POC Glucose 270 H OUTPATIENT ANTIDIABETIC REGIMEN: * Glimepiride * Metformin * A1c = 9.3% (07/05/21) ASSESSMENT: 07/08 * BSGs yesterday of 102, 204, 86, and 122 mg/dL * Received 45 units of insulin (25 units of NPH and 20 units of Novolog) * Fasting BSG of 180 mg/dL this morning - will restart HS Lantus (~0.1 unit/kg) * Novolog tightened yesterday, will continue 07/07 * Pt received 48 units of insulin yesterday, with BSGs 109,185, 124, 142. * Fasting hypoglycemia noted this morning, so Lantus discontinued. * Suspect that NPH/Novolog will provide adequate control throughout the day while pt remains on IV DXM. * Will continue to follow and adjust as needed. 07/04 * 76yo T2DM female with poor outpatient control per recent A1c. Pt follows with [facility]- at last visit plan was for patient to work on her diet (limiting CHO) to improve glycemic control which she has been successful with in the past. Will recheck A1c to see progress of this plan * Pt admitted with COVID-19. Starting high dose IV steroids with dexamethasone 10mg IV x 1 dose today and then 6mg IV daily x 9 days * Will start SQ basal bolus insulin regimen with Lantus + NovoLog for baseline BSG control while PO antidiabetic agents on hold for admission. * Will start weight based NPH for steroid induced hyperglycemia. * NPH insulin is used to counteract the hyperglycemic effect of once daily steroids. * The dose of NPH given is dependent on the steroid dose given * For doses of prednisone 40mg/day (or equivalent) or above NPH dose should be 0.4 units/kg * NPH dosing above is given in addition to patients basal insulin needs * Typically, patients will also need rapid-acting insulin with meals PLAN FOR INPATIENT GLYCEMIC CONTROL: * Hold outpatient oral diabetes medications * Basal insulin * 7 units SC HS * Steroid induced hyperglycemia * NPH 25 units (0.4 units/kg) Sq daily with IV dexamethasone * Bolus insulin * NovoLog per scale ACHS or Q6hrs while NPO * Goal Range: Low 100 mg/dL - High 140 mg/dL * Correction Factor: 20 mg/dL/unit * Nutritional / Prandial insulin per carb ratio of 1 unit per 6 grams CHO consumed PLAN FOR DISCHARGE: * TBD based on A1c 07/05 and steroid taper plan post dc
--- NOTE | 2021-07-09 20:42 | Hospitalist Progress Note ---
Date of Service July 09, 2021 Assessment & Plan (1) Pneumonia due to COVID-19 virus: Plan: Unvaccinated Dexamethasone total 10mg now then 6mg IV daily for total of 10 days. Defer tocilizumab due to low O2 requirement at the current time Above discussed with pulmonology, Dr Cheo Taylorivir deferred due to low eGFR and at day 10 of illness on admission. Cover for atypical pneumonia given elevated neutrophil count with azithromycin Procalcitonin negative therefore will hold off typical coverage unless procalcitonin increases or patient deteriorates. will continue above treatment. Patient continues to refuse to prone despite explaining the importance. Patient however is improving and is now on 3 liters nasal cannula (2) Acute respiratory failure with hypoxia: Plan: Secondary to COVID-19 pneumonia as above Questionable pulmonary emboli and possible bacterial secondary infection much less likely contributing. Aim O2 sats >= 94% (3) Pulmonary emboli: Plan: ruled out. will give dvt prophylaxis dose. (4) Hyponatremia: Plan: Acute on chronic, clinically dry, sodium correction for hyperglycemia = 130 ?nutritional Serum osm, urine osm/Na pending to further investigate Will defer IV fluids to avoid worsening respiratory status and monitor sodium as glucose improves (5) Hypertension: Plan: Antihypertensives not taken by patient for last two days and blood pressure stable Continue to hold lisinopril in setting of worsening renal function Switched diltiazem ER to IR 60mg TID with hold parameters to allow better control (6) Diabetes mellitus type 2, uncontrolled: Plan: HbA1C 10 in April. Repeat with AM labs. Hold home meds of glimepiride and metformin Consult pharmacy for glycemic control with basal bolus insulin in setting of steroid use. (7) Liver lesion: Plan: Incidental finding. AFP with AM labs. Follow up for dedicated imaging as outpatient. (8) Right thyroid nodule: Plan: Incidental finding. Follow up US thyroid, TSH as outpatient. (9) Chronic kidney disease, stage 3: Plan: Close to baseline. No IV fluids at current time as reportedly drinking well and need to avoid worsening respiratory status. Monitor BMP daily. Plan: VTE Prophylaxis - Lovenox treatment dose as above Diet - T2DM Disposition - admit to med/tele Admission and Anticipated Discharge Date Admission Date: July 04, 2021 Subjective Patient reports feeling mildly better today. She denies any productive cough. Review of Systems Review of Systems: All systems reviewed & are unremarkable except as noted in HPI & below Physical Exam Physical Exam: Constitutional: well developed and well nourished; no acute distress Eyes: + anicteric sclerae; normal pupil size ENMT: Mouth: + dry oral mucous membranes Neck: trachea midline, no thyromegaly Respiratory: Auscultation: + crackles (fine throughout); no diminished lung sounds, no rhonchi and no wheezes Cardiovascular: Rate/Rhythm: RRR Heart Sounds: no murmur Vessels: posterior tibial pulses present, dorsalis pedis pulses present and radial pulses present Extremities: normal capillary refill; no calf tenderness and no pedal edema Gastrointestinal (Abdomen): normal bowel sounds, soft, nontender, no hepatosplenomegaly Musculoskeletal: no cyanosis or clubbing, extremities motor strength 5/5 Skin: no rashes, warm and dry Neurologic: moves all extremities and awake; no focal motor deficits (no lateralizing weakness) and not confused Psychiatric: A+Ox3, euthymic affect Results & Data Results & Data ([facility]) Vital Signs (Past 12 Hours) Vital Signs Temp Pulse Resp BP BP Pulse Ox 07/09/21 18:56 36.4 C L 89 19 146/70 H 93 07/09/21 14:08 37 C 90 20 133/67 93 07/09/21 10:53 36.5 C 89 18 127/64 92 PG Care Time/CCT Total # of Minutes Spent Total Time Spent with Patient: Total time spent is greater than 50% in coordination of care (as documented) at patient's floor/unit and/or counseling patient: Coding Level of Care Code 57041 Subseq Hosp Care Lvl 2 Diagnoses Pneumonia due to COVID-19 virus U07.1; J12.82 Acute respiratory failure with hypoxia J96.01 Pulmonary emboli I26.99 Hyponatremia E87.1 Hypertension I10 Diabetes mellitus type 2, uncontrolled E11.65 Glycemic state: with hyperglycemia Liver lesion K76.9 Right thyroid nodule E04.1 Chronic kidney disease, stage 3 N18.3 Time Spent (min) 25 (1) Diabetes mellitus type 2, uncontrolled Glycemic state: with hyperglycemia Qualified Code(s): E11.65 - Type 2 diabetes mellitus with hyperglycemia
[2021-07-09] MEDS: INSULIN GLARGINE SOLOSTAR 100 UNITS/ML 3 ML PEN SC SCH (21:56)
[2021-07-10] MEDS: dexAMETHasone 6 MG in SYRINGE 0 ML IV SCH (09:04)
[2021-07-10 09:05] LABS: Hematocrit (blood only) 38.7 % (37-47); Hemoglobin 12.6 g/dL (12.0-16.0); Mean Corpuscular Hemoglobin 29.4 pg (25-34); Mean Corpuscular Hgb Conc 32.6 g/dL (32-36); Mean Corpuscular Volume 90.2 fL (80-100); Mean Platelet Volume 8.9 fL (7.4-10.4); Platelet Count 644 K/uL (130-400); RDW Standard Deviation 46.4 fL (36.4-46.3); Red Blood Count 4.29 M/uL (4.2-5.4); White Blood Count 14.65 K/uL (4.8-10.8)
[2021-07-10] MEDS: dilTIAZem HCL 30 MG TAB PO SCH ×3 (09:05→21:09)
[2021-07-10] MEDS: busPIRone 7.5 MG TAB PO SCH ×3 (09:05→21:09)
[2021-07-10] MEDS: ENOXAPARIN INJ 40 MG/0.4 ML SYR SQ SCH (09:05)
[2021-07-10 09:35] LABS: BUN Creatinine Ratio 38.9 (10-20); C Reactive Protein 1.16 mg/dl (0-0.29); Creatinine Clr Calc Pharmacy 42.5 ml/min; Est GFR (African American) 68.2 ml/min; Est GFR (Non-African American) 58.9 ml/min; Potassium 4.3 mmol/L (3.5-5.1)
[2021-07-10] MEDS: INSULIN ASPART 100 UNITS/ML 3 ML PEN SC SCH ×4 (09:41→21:44)
[2021-07-10] MEDS: INSULIN HUMAN NPH SC SCH (09:42)
--- NOTE | 2021-07-10 20:08 | Hospitalist Progress Note ---
Date of Service July 10, 2021 Assessment & Plan (1) Pneumonia due to COVID-19 virus: Plan: Unvaccinated Dexamethasone total 10mg now then 6mg IV daily for total of 10 days. Defer tocilizumab due to low O2 requirement at the current time Above discussed with pulmonology, Dr Cheo Taylorivir deferred due to low eGFR and at day 10 of illness on admission. Cover for atypical pneumonia given elevated neutrophil count with azithromycin Procalcitonin negative therefore will hold off typical coverage unless procalcitonin increases or patient deteriorates. will continue above treatment. Patient continues to refuse to prone despite explaining the importance. Patient however is improving and is now on 2 liters nasal cannula As patient is improving, will consult PT OT. (2) Acute respiratory failure with hypoxia: Plan: Secondary to COVID-19 pneumonia as above Questionable pulmonary emboli and possible bacterial secondary infection much less likely contributing. Aim O2 sats >= 94% (3) Pulmonary emboli: Plan: ruled out. will give dvt prophylaxis dose. (4) Hyponatremia: Plan: Acute on chronic, clinically dry, sodium correction for hyperglycemia = 130 ?nutritional Serum osm, urine osm/Na pending to further investigate Will defer IV fluids to avoid worsening respiratory status and monitor sodium as glucose improves (5) Hypertension: Plan: Antihypertensives not taken by patient for last two days and blood pressure stable Continue to hold lisinopril in setting of worsening renal function Switched diltiazem ER to IR 60mg TID with hold parameters to allow better contro l (6) Diabetes mellitus type 2, uncontrolled: Plan: HbA1C 10 in April. Repeat with AM labs. Hold home meds of glimepiride and metformin Consult pharmacy for glycemic control with basal bolus insulin in setting of steroid use. (7) Liver lesion: Plan: Incidental finding. AFP with AM labs. Follow up for dedicated imaging as outpatient. (8) Right thyroid nodule: Plan: Incidental finding. Follow up US thyroid, TSH as outpatient. (9) Chronic kidney disease, stage 3: Plan: Close to baseline. No IV fluids at current time as reportedly drinking well and need to avoid worsening respiratory status. Monitor BMP daily. Plan: VTE Prophylaxis - Lovenox treatment dose as above Diet - T2DM Disposition - admit to med/tele Admission and Anticipated Discharge Date Admission Date: July 04, 2021 Subjective Patient reports she is feeling better. Review of Systems Review of Systems: All systems reviewed & are unremarkable except as noted in HPI & below Physical Exam Physical Exam: Constitutional: well developed and well nourished; no acute distress Eyes: + anicteric sclerae; normal pupil size ENMT: Mouth: + dry oral mucous membranes Neck: trachea midline, no thyromegaly Respiratory: Auscultation: + crackles (fine throughout); no diminished lung sounds, no rhonchi and no wheezes Cardiovascular: Rate/Rhythm: RRR Heart Sounds: no murmur Vessels: posterior tibial pulses present, dorsalis pedis pulses present and radial pulses present Extremities: normal capillary refill; no calf tenderness and no pedal edema Gastrointestinal (Abdomen): normal bowel sounds, soft, nontender, no hepatosplenomegaly Musculoskeletal: no cyanosis or clubbing, extremities motor strength 5/5 Skin: no rashes, warm and dry Neurologic: moves all extremities and awake; no focal motor deficits (no lateralizing weakness) and not confused Psychiatric: A+Ox3, euthymic affect Results & Data Results & Data ([facility]) Vital Signs (Past 12 Hours) Vital Signs Temp Pulse Resp BP BP Pulse Ox 07/10/21 20:00 36.9 C 78 16 139/95 90 07/10/21 16:23 36.5 C 74 19 132/72 93 07/10/21 12:14 36.5 C 86 19 127/60 93 PG Care Time/CCT Total # of Minutes Spent Total Time Spent with Patient: Total time spent is greater than 50% in coordination of care (as documented) at patient's floor/unit and/or counseling patient: Coding Level of Care Code 03066 Subseq Hosp Care Lvl 2 Diagnoses Pneumonia due to COVID-19 virus U07.1; J12.82 Acute respiratory failure with hypoxia J96.01 Pulmonary emboli I26.99 Hyponatremia E87.1 Hypertension I10 Diabetes mellitus type 2, uncontrolled E11.65 Glycemic state: with hyperglycemia Liver lesion K76.9 Right thyroid nodule E04.1 Chronic kidney disease, stage 3 N18.3 Time Spent (min) 25 (1) Diabetes mellitus type 2, uncontrolled Glycemic state: with hyperglycemia Qualified Code(s): E11.65 - Type 2 diabetes mellitus with hyperglycemia
[2021-07-10] MEDS: INSULIN GLARGINE SOLOSTAR 100 UNITS/ML 3 ML PEN SC SCH (21:45)
[2021-07-11] MEDS: dilTIAZem HCL 30 MG TAB PO SCH ×3 (08:46→20:39)
[2021-07-11] MEDS: busPIRone 7.5 MG TAB PO SCH ×3 (08:47→20:39)
[2021-07-11] MEDS: ENOXAPARIN INJ 40 MG/0.4 ML SYR SQ SCH (08:48)
[2021-07-11] MEDS: INSULIN ASPART 100 UNITS/ML 3 ML PEN SC SCH ×4 (08:51→21:19)
[2021-07-11] MEDS: dexAMETHasone 6 MG in SYRINGE 0 ML IV SCH (09:00)
[2021-07-11] MEDS ORDERED: INSULIN HUMAN NPH SC SCH ×2 (09:00)
--- NOTE | 2021-07-11 16:51 | Hospitalist Progress Note ---
Date of Service July 11, 2021 Assessment & Plan (1) Pneumonia due to COVID-19 virus: Plan: Unvaccinated Dexamethasone total 10mg now then 6mg IV daily for total of 10 days. Defer tocilizumab due to low O2 requirement at the current time Above discussed with pulmonology, Dr Cheo Taylorivir deferred due to low eGFR and at day 10 of illness on admission. Cover for atypical pneumonia given elevated neutrophil count with azithromycin Procalcitonin negative therefore will hold off typical coverage unless procalcitonin increases or patient deteriorates. will continue above treatment. Patient continues to refuse to prone despite explaining the importance. Patient however has been improving during this hospital stay and is now on 2 liters nasal cannula As patient is improving, CONSULTED PT/OT. Awaiting input from above services.. . (2) Acute respiratory failure with hypoxia: Plan: Secondary to COVID-19 pneumonia as above Questionable pulmonary emboli and possible bacterial secondary infection much less likely contributing. Aim O2 sats >= 94% (3) Pulmonary emboli: Plan: ruled out. will give dvt prophylaxis dose. (4) Hyponatremia: Plan: Acute on chronic, clinically dry, sodium correction for hyperglycemia = 130 ?nutritional Serum osm, urine osm/Na pending to further investigate Will defer IV fluids to avoid worsening respiratory status and monitor sodium as glucose improves This appears to have resolved. (5) Hypertension: Plan: Antihypertensives not taken by patient for last two days and blood pressure stable Continue to hold lisinopril in setting of worsening renal function Switched diltiazem ER to IR 60mg TID with hold parameters to allow better control (6) Diabetes mellitus type 2, uncontrolled: Plan: HbA1C 10 in April. Repeat with AM labs. Hold home meds of glimepiride and metformin Consult pharmacy for glycemic control with basal bolus insulin in setting of steroid use. (7) Liver lesion: Plan: Incidental finding. AFP with AM labs. Follow up for dedicated imaging as outpatient. (8) Right thyroid nodule: Plan: Incidental finding. Follow up US thyroid, TSH as outpatient. (9) Chronic kidney disease, stage 3: Plan: Close to baseline. No IV fluids at current time as reportedly drinking well and need to avoid worsening respiratory status. Monitor BMP daily. Plan: VTE Prophylaxis - Lovenox treatment dose as above Diet - T2DM Disposition - admit to med/tele Admission and Anticipated Discharge Date Admission Date: July 04, 2021 Subjective Patient is mildly better today. She states she is tolerating her 2 liters nasal cannula. Review of Systems Review of Systems: All systems reviewed & are unremarkable except as noted in HPI & below Physical Exam Physical Exam: Constitutional: well developed and well nourished; no acute distress Eyes: + anicteric sclerae; normal pupil size ENMT: Mouth: + dry oral mucous membranes Neck: trachea midline, no thyromegaly Respiratory: Auscultation: + crackles (fine throughout); no diminished lung sounds, no rhonchi and no wheezes Cardiovascular: Rate/Rhythm: RRR Heart Sounds: no murmur Vessels: posterior tibial pulses present, dorsalis pedis pulses present and radial pulses present Extremities: normal capillary refill; no calf tenderness and no pedal edema Gastrointestinal (Abdomen): normal bowel sounds, soft, nontender, no hepatosple nomegaly Musculoskeletal: no cyanosis or clubbing, extremities motor strength 5/5 Skin: no rashes, warm and dry Neurologic: moves all extremities and awake; no focal motor deficits (no lateralizing weakness) and not confused Psychiatric: A+Ox3, euthymic affect Results & Data Results & Data ([facility]) Vital Signs (Past 12 Hours) Vital Signs Temp Pulse Pulse Resp BP Pulse Ox 07/11/21 15:57 83 07/11/21 15:50 36.5 C 76 19 115/71 94 07/11/21 13:58 90 143/60 H 07/11/21 12:19 36.5 C 85 16 123/82 96 07/11/21 11:30 68 07/11/21 07:53 36.9 C 76 20 127/72 92 PG Care Time/CCT Total # of Minutes Spent Total Time Spent with Patient: Total time spent is greater than 50% in coordination of care (as documented) at patient's floor/unit and/or counseling patient: Coding Level of Care Code 94887 Subseq Hosp Care Lvl 2 Diagnoses Pneumonia due to COVID-19 virus U07.1; J12.82 Acute respiratory failure with hypoxia J96.01 Pulmonary emboli I26.99 Hyponatremia E87.1 Hypertension I10 Diabetes mellitus type 2, uncontrolled E11.65 Glycemic state: with hyperglycemia Liver lesion K76.9 Right thyroid nodule E04.1 Chronic kidney disease, stage 3 N18.3 Time Spent (min) 25 (1) Diabetes mellitus type 2, uncontrolled Glycemic state: with hyperglycemia Qualified Code(s): E11.65 - Type 2 diabetes mellitus with hyperglycemia
[2021-07-11] MEDS ORDERED: INSULIN HUMAN REGULAR PER UNIT 5 UNITS in SYRINGE 4.95 ML IV ONE (17:30)
[2021-07-11] MEDS ORDERED: INSULIN GLARGINE SOLOSTAR 100 UNITS/ML 3 ML PEN SC SCH (21:00)
[2021-07-12] MEDS: INSULIN ASPART 100 UNITS/ML 3 ML PEN SC SCH ×4 (00:10→13:13)
[2021-07-12] MEDS ORDERED: INSULIN HUMAN NPH SC SCH (09:00)
[2021-07-12] MEDS: dexAMETHasone 6 MG in SYRINGE 0 ML IV SCH ×2 (09:33→10:04)
[2021-07-12] MEDS: ENOXAPARIN INJ 40 MG/0.4 ML SYR SQ SCH (09:35)
[2021-07-12] MEDS: dilTIAZem HCL 30 MG TAB PO SCH ×2 (09:35→15:22)
[2021-07-12] MEDS: busPIRone 7.5 MG TAB PO SCH ×2 (09:35→15:22)
--- NOTE | 2021-07-12 12:22 | Pharmacy Report ---
Pharmacy Glycemic Short Note 2 - Date of Service July 12, 2021 - Glycemic Short BSG Results (Last 24 hours): 07/10/21 07/11/21 07/11/21 19:57 16:56 16:57 POC Glucose 125 H 341 H* 370 H* 07/11/21 07/11/21 07/11/21 20:25 20:27 23:49 POC Glucose 401 H* 389 H* 182 H 07/12/21 07/12/21 07/12/21 03:50 07:30 11:42 POC Glucose 88 130 H 261 H OUTPATIENT ANTIDIABETIC REGIMEN: * Glimepiride * Metformin * A1c = 9.3% (07/05/21) ASSESSMENT: 07/12 * 106 units SQ insulin given over last 24 hours while tolerating a diet * Fasting BSG at goal this AM, FBS 130, with 25 units NPH and 4 units Lantus given yesterday. Given overnight drop in BSGs to 70's-80s the last 2 nights, will d/c Lantus and use only NPH in the AM for basal needs. Will also reduce HS and overnight Novolog doses to lessen risk of fasting hypoglycemia at a time of day when steroid effect on BSG is less * Post-prandial hyperglycemia problematic yesterday, will trial higher NPH dose and larger prandial Novolog doses w/ meals today. * Of note, tomorrow appears to be final day of dexamethasone IV PLAN FOR INPATIENT GLYCEMIC CONTROL: * Hold outpatient oral diabetes medications * Basal insulin * Discontinue Lantus * NPH 30 units SQ Q AM w / IV dexamethasone * Bolus insulin * NovoLog per scale ACHS and at 0200 * Goal Range: Low 100 mg/dL - High 140 mg/dL * Correction Factor: 12 mg/dL/unit w/ meals; 25mg/dL/unit at HS and overnight (will only correct HS and overnight if BSG above 180) * Nutritional / Prandial insulin per carb ratio of 1 unit per 3 grams CHO consumed w/ meals; 1 unit per 8 grams CHO consumed HS and overnight PLAN FOR DISCHARGE: * A1c 9.3% is above goal. * She may be a candidate for the addition of GLP1-RA or basal insulin to metformin in the future with discontinuation glimepiride (not a good candidate for SGLT2i due to renal fxn). Patient attributes loss of glycemic control to anxiety/grief following recent passing of her and prefers lifestyle modifications at this time. Would be best if patient discharged on current out-pt regimen (if steroid not ordered on discharge) with timely f/u with [facility]ocr[facility]ology for assistance w/ glycemic control.
--- NOTE | 2021-07-12 15:01 | Discharge Summary ---
Date of Service July 12, 2021 Admission HPI Per Admitting Provider Juliana Hall is a 76 year old female who presents to the ER COVID symptoms and hypoxia on home oxygen saturation monitor. Patient is unvaccinated. Initial symptoms started 10 days ago including fevers, chills, loss of taste, loss of appetite, myalgias, diarrhea (now resolved), generalized fatigue, shortness of breath, nonproductive cough. She denies any sore throat, headache, confusion, chest or abdominal pain. She reports coming to the ER today due to her oxygen saturations 85% on room air and was advised to come to the ER if less than 90%. She does report feeling more short of breath today but her main symptoms are generalized weakness, fatigue and loss of appetite. She reports drinking okay but not eating. She lives with her son who is vaccinated. She has not taken her medications for the last 2 days that she has forgotten to take them. She does report taking for amoxicillin which she had leftover at the beginning of this illness but no further antibiotics. In the ER CT chest angiogram concerning for questionable pulmonary embolus, multifocal pneumonia. O2 sats maintaining > 94% on 2 LPM O2. Tried calling patient's daughter but no answer on number provided on admission. Principal Diagnosis COVID 19 pneumonia Acute hypoxic respiratory failure Discharge Exam General: elderly female, well developed, well nourished, no acute distress, comfortable Neck: supple, trachea midline, normal thyroid Lungs: clear to auscultation bilaterally, normal respiratory effort, no accessory muscle use, no distress Heart: regular S1 and S2, no murmur, peripheral pulses normal, capillary refill normal, no edema Abdomen: soft, NT, ND, + BS, no hepatomegaly, normal to percussion Extremities: normal in appearance, no cyanosis, no petechiae, strength is 5/5 bilaterally Neuro: awake, cooperative, moves all extremities, no focal motor deficits, CN II-XII intact, sensation in extremities intact, normal speech Skin: warm, dry, no rash, normal turgor Psych: Awake, alert oriented x 3, euthymic affect Discharge Data Allergies Allergy/AdvReac Type Severity Reaction Status Date / Time doxycycline AdvReac Mild diarrhea Verified 07/08/21 09:21 Consultations 07/04/21 12:04 ED Decision to Admit Stat Ordered Studies 07/04/21 09:53 CT angio chest PE protocol Stat Diabetes Follow up Diabetes Follow-up Needed for HgbA1c >9% Hospital Course (1) Pneumonia due to COVID-19 virus: completed a course of dexamethasone, no need for further treatment on discharge not a candidate for Tocilizumab Remdesivir deferred due to low eGFR and at day 10 of illness on admission. completed a course of Zithromax breathing is stable on room air, 2 step completed 07/12, no oxygen needed at rest or on exertion she is eating well, keeping well hydrated she lives with her son and her daughter is retired and lives next door, both are vaccinated an can help take care of her . (2) Acute respiratory failure with hypoxia: Secondary to COVID-19 pneumonia as above stable on room air today, no distress, feels well (3) Hyponatremia: Acute on chronic, clinically dry, sodium correction for hyperglycemia = 130 ?nutritional Serum osm, urine osm/Na pending to further investigate Will defer IV fluids to avoid worsening respiratory status and monitor sodium as glucose improves This appears to have resolved. (4) Hypertension: resume Lisinopril at BP elevated at times and renal function stable resume Cardizem 360mg daily, was on short acting while here (5) Diabetes mellitus type 2, uncontrolled: HbA1C 10 in April. Repeat with AM labs. resume glimepiride and metformin on discharge needed NPH insulin and Novolog SS while here, no plans for dexamethasone on discharge (6) Liver lesion: Incidental finding "Questionable hypoattenuating lesion within the right lobe of the liver is incompletely evaluated on this nondedicated exam. Differential diagnosis include hemangioma, cyst or neoplastic process" AFP was normal at 1.9 can consider repeat imaging as outpatient, get Liver CT or liver MRI, not urgent (7) Right thyroid nodule: Incidental finding. Follow up US thyroid, TSH as outpatient. (8) Chronic kidney disease, stage 3: Cr at 0.9, stable VTE Prophylaxis - Lovenox treatment dose as above Diet - T2DM Disposition - discharge to home Total Time Total Time Spent Total Time Spent (In Minutes): 33 minutes Total Time Includes: Examination of the Patient, Discharge Planning and Medication Reconciliation Discharge Plan Discharge Items Patient Disposition: Home - Self-Care Reason For Visit: COVID -19 PNEUMONIA,ACUTE HYPOXIC RESPIRATORY FAIL Discharge Diagnosis: COVID 19 pneumonia Acute hypoxic respiratory failure, resolved Condition on Discharge: Good Goals: stay well nourished, well rested Activity: Resume your previous activity Weightbearing: Full weightbearing Non-emergency contact: Primary Care Provider Call non-emergency contact if: you have any medication questions Follow-up/Referrals: Monroe Villalobos MD [Primary Care Provider] - (one week) Diet: Carb Consistent or DM2 Addtl Attending Provider Instructions: Medications: no new medications, no changes COVID 19 pneumonia, acute hypoxic respiratory failure you responded well to treatment, completed full course of dexamethasone, no further treatment needed continue to stay well nourished, well hydrated, get rest but also stay active to keep up strength (walk short distances, slowly increase distance/duration) no longer considered contagious, no need to quarantine follow up with PCP in a week, can be a virtual visit Pending Studies at Discharge: No Stand-Alone Forms: My [facility], Smoking Cessation Medications and DC Order Prescriptions: Continued estradiol 0.01 % (0.1 mg/gram) cream 1 g PV [id number] Qty: 42.5 RF: 4 diltiazem HCl 360 mg capsule,extended release 24 hr 360 mg PO QAM Qty: 90 RF: 3 lisinopril 20 mg tablet 20 mg PO BID Qty: 180 RF: 3 glimepiride 4 mg tablet 4 mg PO BID Qty: 180 RF: 3 meclizine 25 mg tablet 25 mg PO QID PRN (Reason: dizziness) Qty: 60 RF: 1 metformin 500 mg tablet 500 mg PO BID RF: 0 glucosamine sulfate 1,000 mg Capsule 1,000 mg PO TID RF: 0 Advil PM 200-38 mg Tablet 1 cap PO HS RF: 0 buspirone 7.5 mg tablet 7.5 - 15 mg PO TID RF: 0 Discharge Orders: Discharge Order (Routine); Ordered 07/12/21 Ordered By: Srinath Hand Admission Data Admit Date/Time: 07/04/21 13:01 Attending Provider: Srinath Hand Admit Provider: Masood Quick Primary Care Provider: Monroe Villalobos Other Providers: Masood Quick Coding Level of Care Code D/C DAY MANAGEMENT >30 MINS Diagnoses Pneumonia due to COVID-19 virus U07.1; J12.82 Acute respiratory failure with hypoxia J96.01 Hyponatremia E87.1 Hypertension I10 Diabetes mellitus type 2, uncontrolled E11.65 Glycemic state: with hyperglycemia Liver lesion K76.9 Right thyroid nodule E04.1 Chronic kidney disease, stage 3 N18.3
[2021-07-12] MEDS ORDERED: INSULIN ASPART 100 UNITS/ML 3 ML PEN SC SCH (21:00)
[2021-07-13] MEDS ORDERED: dexAMETHasone 6 MG in SYRINGE 0 ML IV SCH (09:00)
== END 2021-07-12 17:50 | disposition home or self-care (01) | DRG 177 ==
LOC: ED 09:40 → 2S 13:01 → SUATTDRO 13:01 → 2S 13:59
DX: Z82.49 Family history of ischemic heart disease and other diseases of the circulatory system; K76.9 Liver disease, unspecified; U07.1 COVID-19; E87.1 Hypo-osmolality and hyponatremia; Z79.899 Other long term (current) drug therapy; J12.82 Pneumonia due to coronavirus disease 2019; E04.1 Nontoxic single thyroid nodule; F41.9 Anxiety disorder, unspecified; Z88.1 Allergy status to other antibiotic agents; R82.79 Other abnormal findings on microbiological examination of urine; Z51.81 Encounter for therapeutic drug level monitoring; R19.7 Diarrhea, unspecified; E11.22 Type 2 diabetes mellitus with diabetic chronic kidney disease; N18.30 Chronic kidney disease, stage 3 unspecified; Z79.84 Long term (current) use of oral hypoglycemic drugs; Z20.822 Contact with and (suspected) exposure to COVID-19; J96.01 Acute respiratory failure with hypoxia; R53.83 Other fatigue; R11.2 Nausea with vomiting, unspecified; I12.9 Hypertensive chronic kidney disease with stage 1 through stage 4 chronic kidney disease, or unspecified chronic kidney disease